=== PATIENT | male | born 1945 | race Caucasian/White ===

== ENCOUNTER 2017-08-12 15:43 | Inpatient (IN) | payer OTHER, MEDICARE ==
[~2017-08-12] VITALS: Ht 180.3 cm; Wt 99.3 kg
[2017-08-12 16:09] VITALS: BP 190/82; PULSE 88; RESP 17; TEMP 98.6; O2SAT 98
[2017-08-12] MEDS ORDERED: VANCOMYCIN INJ 1,000 MG in SODIUM CHLOR 0.9% 250 ML INJ 250 ML IV ONE (17:00)
[2017-08-12] MEDS ORDERED: PIPERACIL-TAZO 3.375 GM PREMIX 50 ML IV ONE (17:00)
[2017-08-12 17:17] VITALS: BP 142/70; PULSE 85; RESP 17; O2SAT 96
[2017-08-12 17:26] LABS: AUTOMATED NEUTROPHIL # 5.9 TH/MM3 (1.8-7.7); BASOPHIL # 0.1 TH/MM3 (0-0.2); BASOPHIL % 0.7 % (0.0-2.0); EOSINOPHIL # 0.5 TH/MM3 (0-0.4); EOSINOPHIL % 5.3 % (0.0-4.0); HEMATOCRIT 33.8 % (39.0-51.0); HEMOGLOBIN 11.7 GM/DL (13.0-17.0); LYMPHOCYTE # 1.8 TH/MM3 (1.0-4.8); MEAN CELL VOLUME 90.8 FL (80.0-100.0); MEAN CORPUSCULAR HEMOGLOBIN 31.6 PG (27.0-34.0); MEAN CORPUSCULAR HGB CONC 34.8 % (32.0-36.0); MEAN PLATELET VOLUME 10.6 FL (7.0-11.0); MONO % 7.7 % (0.0-8.0); MONOCYTE # 0.7 TH/MM3 (0-0.9); NEUT % 66.3 % (16.0-70.0); PLATELET COUNT 111 TH/MM3 (150-450); RED BLOOD COUNT 3.72 MIL/MM3 (4.50-5.90); RED CELL DISTRIBUTION WIDTH 14.2 % (11.6-17.2); WHITE BLOOD COUNT 8.9 TH/MM3 (4.0-11.0)
[2017-08-12] MEDS ORDERED: FISH100020 PO (17:34)
[2017-08-12] MEDS ORDERED: NOVOLOGMXP SQ ×2 (17:34)
[2017-08-12] MEDS ORDERED: MULTTAB67 PO (17:34)
[2017-08-12] MEDS ORDERED: TERA1CAP3 PO (17:34)
[2017-08-12] MEDS ORDERED: DOXE75CA2 PO (17:34)
[2017-08-12] MEDS ORDERED: GLUC500T4 PO (17:34)
[2017-08-12] MEDS ORDERED: ASCO500T PO (17:34)
[2017-08-12] MEDS ORDERED: UBID30CA2 PO (17:34)
[2017-08-12] MEDS ORDERED: LISI40TA PO (17:34)
[2017-08-12] MEDS ORDERED: ASPI-516 CHEW (17:34)
[2017-08-12] MEDS ORDERED: RED1CAP4 PO (17:34)
[2017-08-12] MEDS ORDERED: AMLO2.5T PO (17:34)
[2017-08-12] MEDS ORDERED: GEMF600T PO (17:34)
--- NOTE | 2017-08-12 17:40 | RADRPT ---
EXAM DATE/TIME: 08/12/2017 17:11 [place] COMPARISON: No previous studies available for comparison. INDICATIONS : Left foot pain and swelling with infection after walking in shoes for a long amount of time. MEDICAL HISTORY : Diabetes mellitus type II. SURGICAL HISTORY : None. ENCOUNTER: Initial ACUITY: 1 week PAIN SCORE: 6/10 LOCATION: Left foot. FINDINGS: There is deformity of the proximal phalanx of the 5th digit with prominent periosteal reaction and co rtical discontinuity suggesting a healed fracture. The remainder of the osseous structures of the fo refoot are intact. There is severe dorsal soft tissue swelling about the forefoot measuring up to 3 cm in thickness. There is some irregularity of the dorsal margin of the distal tarsal row and degene rative changes in the navicular tarsal articulation dorsally. There is loss of the midfoot arch. Th ere is a large plantar calcaneal spur. CONCLUSION: 1. Severe dorsal forefoot soft tissue swelling. 2. Old healed fracture of the proximal phalanx of the 5th digit. 3. Moderate irregularity of the osseous cortex dorsal aspect of the tarsal row, nonspecific for infec tion versus arthropathy. 4. Pes planus. Estiven Beaver MD on August 12, 2017 at 17:35 Board Certified Radiologist. This report was verified electronically.
[2017-08-12 17:41] LABS: ALBUMIN 3.8 GM/DL (3.4-5.0); AST (GOT) 17 U/L (15-37); BICARBONATE 20.6 MEQ/L (21.0-32.0); BLOOD UREA NITROGEN 44 MG/DL (7-18); CALCIUM 9.2 MG/DL (8.5-10.1); CHLORIDE 108 MEQ/L (98-107); CREATININE 2.49 MG/DL (0.60-1.30); GLOMERULAR FILTRATION RATE 26 ML/MIN (>89); GLUCOSE,RANDOM 155 MG/DL (74-106); SODIUM (NA) 139 MEQ/L (136-145)
[2017-08-12 17:45] LABS: ALKALINE PHOSPHATASE 117 U/L (45-117); ALT (GPT) 21 U/L (12-78); TOTAL BILIRUBIN ADULT 0.4 MG/DL (0.2-1.0)
--- NOTE | 2017-08-12 18:37 | PD ---
HPI Chief Complaint: Wound/Suture/Staple Re-Check Time Seen by Provider: 16:40 Travel History International Travel<30 days: No Contact w/Intl Traveler<30days: No Traveled to known affect area: No History of Present Illness HPI 71-year-old male that presents to the ED for evaluation of possible infection to his left foot. Patient states that he has had this swelling and infection of his left foot for about 2 weeks. Has a history of diabetes and takes insulin. Per patient his pain is 2 out of 10 is more like an ache. Per patient he has some sensation deficits because of the diabetes. Per patient he was seen by the [facility] doctor today who told him to come here for likely IV antibiotics and admission. Denies any trauma. Per patient he got concerned today because the nail of the left great toe fell off. He denies any surgeries to his feet but does get his nails taken care of by the [facility]. He states being compliant with his medications for diabetes. He denies any fevers chills or sweats. No urinary or bowel movement issues. Denies any chest pain or shortness of breath. No fevers chills or sweats. No injury or trauma to the foot that he can remember. He currently states that he cannot even wear shoes because of the swelling. PFSH Past Medical History Hx Anticoagulant Therapy: Yes Diabetes: Yes Patient Takes Glucophage: Yes Diminished Hearing: Yes Hypertension: Yes Medical other: Yes (BPH,GLAUCOMA,CKD,NEUROPATHY) Tetanus Vaccination: < 5 Years ?: Not Past Surgical History Other Surgery: Yes (LEFT HAND TRAUMA, LEFT EYE ) Social History Alcohol Use: No Tobacco Use: No Substance Use: No Allergies-Medications (Allergen,Severity, Reaction): Coded Allergies: No Known Allergies (Verified Allergy, Mild, 08/12/17) Reported Meds & Prescriptions Reported Meds & Active Scripts Active Reported Terazosin (Terazosin HCl) 1 Mg Cap 1 Mg PO HS Red Yeast Rice (Red Yeast Rice Extract) 600 Mg Cap 1,200 Mg PO BID Multiple Vitamin 1 Tab 1 Tab PO DAILY Lisinopril 40 Mg Tab 40 Mg PO BID Glucosamine-Chondroitin 500-400 Mg Tab 1 Tab PO DAILY Gemfibrozil 600 Mg Tab 600 Mg PO BIDAC Take 30 minutes prior to breakfast and dinner. Fish Oil 1000 mg ([place]-3 Fatty Acids) 300 Mg-1,000 Mg Cap 1,000 PO BID Doxepin (Doxepin HCl) 75 Mg Cap 75 Mg PO DAILY Coenzyme Q-10 (Ubidecarenone) 30 Mg Capsule PO DAILY Aspirin 81 Mg Chew 81 Mg CHEW DAILY Ascorbic Acid 500 Mg Tab 500 Mg PO DAILY Amlodipine (Amlodipine Besylate) 2.5 Mg Tab 2.5 Mg PO DAILY Novolog Mix 70-30 Inj (Insulin Aspart Prota 70%/Aspart 30%) 1,000 Unit/10 Ml Vial 32 Units SQ DAILY@1600 Novolog Mix 70-30 Inj (Insulin Aspart Prota 70%/Aspart 30%) 1,000 Unit/10 Ml Vial 30 Units SQ DAILYAC Review of Systems Except as stated in HPI: all other systems reviewed are Neg Physical Exam Narrative GENERAL: SKIN: Warm and dry. HEAD: Atraumatic. Normocephalic. EYES: Pupils equal and round. No scleral icterus. No injection or drainage. ENT: No nasal bleeding or discharge. Mucous membranes pink and moist. Tongue is midline. No uvula deviation. NECK: Trachea midline. No JVD. CARDIOVASCULAR: Regular rate and rhythm. No murmurs, S3, S4. RESPIRATORY: No accessory muscle use. Clear to auscultation. Breath sounds equal bilaterally. GASTROINTESTINAL: Abdomen soft, non-tender, nondistended. Hepatic and splenic margins not palpable. MUSCULOSKELETAL: Extremities without clubbing, cyanosis, or edema. No obvious deformities. Full range of motion of the upper and lower extremities bilaterally. 2+ pulses bilaterally. Patient does have swelling and erythema noted on the dorsal aspect of the left foot. Most of the swelling and erythematous on the first and second toe going to the distal third aspect of the foot. Mostly the dorsal aspect. Patient does have the big toe nail missing with some purulence coming out of it. Patient does appear to have good capillary refill. 2+ pitting edema. Erythematous and warm to touch. NEUROLOGICAL: Awake and alert. No obvious cranial nerve deficits. Motor grossly within normal limits. Five out of 5 muscle strength in the arms and legs. Normal speech. PSYCHIATRIC: Appropriate mood and affect; insight and judgment normal. Data Data Last Documented VS Vital Signs Date Time Temp Pulse Resp B/P (MAP) Pulse Ox O2 Delivery O2 Flow Rate FiO2 08/12/17 17:17 85 17 142/70 (94) 96 Room Air 08/12/17 16:09 98.6 Orders Orders Complete Blood Count With Diff (08/12/17 16:12) Comprehensive Metabolic Panel (08/12/17 16:12) Lactic Acid Sepsis Protocol (08/12/17 16:12) Blood Culture (08/12/17 16:12) Foot, Complete ([id number]) (08/12/17 16:55) Blood Culture (08/12/17 16:55) C-Reactive Protein (Crp) (08/12/17 16:55) Westergren Sedimentation Rate (08/12/17 16:55) Iv Access Insert/Monitor (08/12/17 16:55) Piperacil-Tazo 3.375 Gm Premix (Zosyn 3. (08/12/17 17:00) Vancomycin Inj (Vancomycin Inj) (08/12/17 17:00) Wound Culture And Gram Stain (08/12/17 16:55) Labs Laboratory Tests Test 08/12/17 16:37 08/12/17 17:06 White Blood Count 8.9 TH/MM3 Red Blood Count 3.72 MIL/MM3 Hemoglobin 11.7 GM/DL Hematocrit 33.8 % Mean Corpuscular Volume 90.8 FL Mean Corpuscular Hemoglobin 31.6 PG Mean Corpuscular Hemoglobin Concent 34.8 % Red Cell Distribution Width 14.2 % Platelet Count 111 TH/MM3 Mean Platelet Volume 10.6 FL Neutrophils (%) (Auto) 66.3 % Lymphocytes (%) (Auto) 20.0 % Monocytes (%) (Auto) 7.7 % Eosinophils (%) (Auto) 5.3 % Basophils (%) (Auto) 0.7 % Neutrophils # (Auto) 5.9 TH/MM3 Lymphocytes # (Auto) 1.8 TH/MM3 Monocytes # (Auto) 0.7 TH/MM3 Eosinophils # (Auto) 0.5 TH/MM3 Basophils # (Auto) 0.1 TH/MM3 CBC Comment DIFF FINAL Differential Comment Blood Urea Nitrogen 44 MG/DL Creatinine 2.49 MG/DL Random Glucose 155 MG/DL Total Protein 8.0 GM/DL Albumin 3.8 GM/DL Calcium Level 9.2 MG/DL Alkaline Phosphatase 117 U/L Aspartate Amino Transf (AST/SGOT) 17 U/L Alanine Aminotransferase (ALT/SGPT) 21 U/L Total Bilirubin 0.4 MG/DL Sodium Level 139 MEQ/L Potassium Level 4.3 MEQ/L Chloride Level 108 MEQ/L Carbon Dioxide Level 20.6 MEQ/L Anion Gap 10 MEQ/L Estimat Glomerular Filtration Rate 26 ML/MIN Lactic Acid Level 1.6 mmol/L Erythrocyte Sedimentation Rate 61 mm/hr C-Reactive Protein 0.35 MG/DL [facility] Medical Decision Making Medical Screen Exam Complete: Yes Emergency Medical Condition: Yes Medical Record Reviewed: Yes Interpretation(s) CBC & BMP Diagram 08/12/17 16:37 Total Protein 8.0, Albumin 3.8, Calcium Level 9.2, Alkaline Phosphatase 117, Aspartate Amino Transf (AST/SGOT) 17, Alanine Aminotransferase (ALT/SGPT) 21, Total Bilirubin 0.4 Last Impressions Foot X-Ray 08/12/17 9895 Signed Impressions: Service Date/Time: Saturday, August 12, 2017 17:11 - CONCLUSION: 1. Severe dorsal forefoot soft tissue swelling. 2. Old healed fracture of the proximal phalanx of the 5th digit. 3. Moderate irregularity of the osseous cortex dorsal aspect of the tarsal row, nonspecific for infection versus arthropathy. 4. Pes planus. Estiven Beaver MD CRP and ESR positive Differential Diagnosis Cellulitis versus osteomyelitis versus foot infection versus sepsis Narrative Course 71-year-old male that presents to the ED for evaluation of foot infection. Patient was properly examined and was found to have signs and symptoms consistent with appears to be left foot cellulitis deafly concerning for possible osteomyelitis. Labs and imaging were ordered. Labs and imaging did show signs of infection but no sign of osteo-myelitis at this time will definitely concerning as patient does have significant infection in his foot. Because patient is a diabetic in the significant area of erythema and swelling that he has to do recommend admission for IV antibiotics as well as possible podiatry evaluation. Patient agrees with this plan. This was discussed with my attending Dr. Jimenez who was made aware of findings and agrees with admission. JUSTIN was paged and Dr Bishop agreed with admission. Diagnosis Primary Impression: Cellulitis of foot, left Admitting Information Admitting Physician Requests: Observation El Fritz Aug 12, 2017 18:37
[2017-08-12] MEDS ORDERED: MAGNESIUM HYDROXIDE SUSP 30 ML CUP PO PRN (20:30)
[2017-08-12] MEDS ORDERED: LACTULOSE SYRUP 20 GM/30 ML CUP PO PRN (20:30)
[2017-08-12] MEDS ORDERED: SENNOSIDES 8.6 MG TAB PO PRN (20:30)
[2017-08-12] MEDS ORDERED: DEXTROSE 50% IN WATER 50 ML VIAL(D50) IV PUSH PRN (20:30)
[2017-08-12] MEDS ORDERED: Vancomycin Consult Pharmacy 1 EA OTHER SCH (20:30)
[2017-08-12] MEDS ORDERED: NALOXONE HCL 0.4 MG/ML AMP IV PUSH PRN (20:30)
[2017-08-12] MEDS ORDERED: BISACODYL 10 MG SUPP RECTAL PRN (20:30)
[2017-08-12] MEDS ORDERED: ONDANSETRON HCL 4 MG/2 ML VIAL IVP PRN (20:30)
[2017-08-12] MEDS ORDERED: ACETAMINOPHEN 325 MG TAB PO PRN (20:30)
[2017-08-12] MEDS ORDERED: GLUCAGON 1 MG/ML VIAL OTHER PRN (20:30)
--- NOTE | 2017-08-12 20:37 | HHI.HP ---
[facility] Admission Diagnosis left foot cellulitis Diagnoses: Travel History International Travel<30 Days: No Contact w/Intl Traveler <30 Da: No Traveled to Known Affected Are: No History of Present Illness 71-year-old male with a past medical history significant for diabetes mellitus, chronic kidney disease, cirrhosis, hypertension and hyperlipidemia presents to the emergency department for evaluation of his left foot pain/swelling. The patient states that approximately 2 weeks ago he had to walk 2 miles in all shoes and his foot began to swell. He denies any open wounds on the foot. He states that his foot became progressively more red and swollen and last night he lost the nail off his big toe. The patient reports he is able to ambulate on the foot and that it just has a dull ache all the time. His foot is red and swollen on the medial aspect and dorsum of the foot. He was seen by his primary care physician at the [facility] today who sent him to the emergency department for further evaluation. The patient denies any chest pain or shortness of breath. No abdominal pain. No nausea/vomiting/diarrhea. No lateralizing signs /symptoms. Review of Systems Except as stated in HPI: all other systems reviewed are Neg Past Family Social History Past Medical History Diabetes mellitus Chronic kidney disease Cirrhosis Hypertension Hyperlipidemia Past Surgical History Left fifth digit of the hand partially amputated Left eye cataract Reported Medications Reported Meds & Active Scripts Active Reported Terazosin (Terazosin HCl) 1 Mg Cap 1 Mg PO HS Red Yeast Rice (Red Yeast Rice Extract) 600 Mg Cap 1,200 Mg PO BID Multiple Vitamin 1 Tab 1 Tab PO DAILY Lisinopril 40 Mg Tab 40 Mg PO BID Glucosamine-Chondroitin 500-400 Mg Tab 1 Tab PO DAILY Gemfibrozil 600 Mg Tab 600 Mg PO BIDAC Take 30 minutes prior to breakfast and dinner. Fish Oil 1000 mg ([place]-3 Fatty Acids) 300 Mg-1,000 Mg Cap 1,000 PO BID Doxepin (Doxepin HCl) 75 Mg Cap 75 Mg PO DAILY Coenzyme Q-10 (Ubidecarenone) 30 Mg Capsule PO DAILY Aspirin 81 Mg Chew 81 Mg CHEW DAILY Ascorbic Acid 500 Mg Tab 500 Mg PO DAILY Amlodipine (Amlodipine Besylate) 2.5 Mg Tab 2.5 Mg PO DAILY Novolog Mix 70-30 Inj (Insulin Aspart Prota 70%/Aspart 30%) 1,000 Unit/10 Ml Vial 32 Units SQ DAILY@1600 Novolog Mix 70-30 Inj (Insulin Aspart Prota 70%/Aspart 30%) 1,000 Unit/10 Ml Vial 30 Units SQ DAILYAC Allergies: Coded Allergies: No Known Allergies (Verified Allergy, Mild, 08/12/17) Family History Both parents with history of CVA Social History Negative for alcohol, tobacco and illicit drugs Physical Exam Vital Signs Vital Signs Date Time Temp Pulse Resp B/P (MAP) Pulse Ox O2 Delivery O2 Flow Rate FiO2 08/12/17 17:17 85 17 142/70 (94) 96 Room Air 08/12/17 16:09 98.6 88 17 190/82 (118) 98 Physical Exam GENERAL: male sitting up in chair SKIN: Left foot edematous with erythema on the medial half of the dorsum of the foot that extends to the plantar surface. Right toenail missing. No obvious signs of drainage. No fluctuance. HEAD: Atraumatic. Normocephalic. No temporal or scalp tenderness. EYES: Pupils equal round and reactive. Extraocular motions intact. No scleral icterus. No injection or drainage. ENT: Nose without bleeding, purulent drainage or septal hematoma. Throat without erythema, tonsillar hypertrophy or exudate. Uvula midline. Airway patent. NECK: Trachea midline. No JVD or lymphadenopathy. Supple, nontender, no meningeal signs. CARDIOVASCULAR: Regular rate and rhythm without murmurs, gallops, or rubs. RESPIRATORY: Clear to auscultation. Breath sounds equal bilaterally. No wheezes , rales, or rhonchi. GASTROINTESTINAL: Abdomen soft, non-tender, nondistended. No hepato-splenomegaly , or palpable masses. No guarding. MUSCULOSKELETAL: Extremities without clubbing, cyanosis, or edema. No joint tenderness, effusion, or edema noted. No calf tenderness. NEUROLOGICAL: Awake and alert. Cranial nerves II through XII intact. Motor and sensory grossly within normal limits. Normal speech. Laboratory Laboratory Tests Test 08/12/17 16:37 08/12/17 17:06 White Blood Count 8.9 Red Blood Count 3.72 Hemoglobin 11.7 Hematocrit 33.8 Mean Corpuscular Volume 90.8 Mean Corpuscular Hemoglobin 31.6 Mean Corpuscular Hemoglobin Concent 34.8 Red Cell Distribution Width 14.2 Platelet Count 111 Mean Platelet Volume 10.6 Neutrophils (%) (Auto) 66.3 Lymphocytes (%) (Auto) 20.0 Monocytes (%) (Auto) 7.7 Eosinophils (%) (Auto) 5.3 Basophils (%) (Auto) 0.7 Neutrophils # (Auto) 5.9 Lymphocytes # (Auto) 1.8 Monocytes # (Auto) 0.7 Eosinophils # (Auto) 0.5 Basophils # (Auto) 0.1 CBC Comment DIFF FINAL Differential Comment Blood Urea Nitrogen 44 Creatinine 2.49 Random Glucose 155 Total Protein 8.0 Albumin 3.8 Calcium Level 9.2 Alkaline Phosphatase 117 Aspartate Amino Transf (AST/SGOT) 17 Alanine Aminotransferase (ALT/SGPT) 21 Total Bilirubin 0.4 Sodium Level 139 Potassium Level 4.3 Chloride Level 108 Carbon Dioxide Level 20.6 Anion Gap 10 Estimat Glomerular Filtration Rate 26 Lactic Acid Level 1.6 Erythrocyte Sedimentation Rate 61 C-Reactive Protein 0.35 Date/Time Source Procedure Growth Status 08/12/17 17:10 Blood Peripheral Aerobic Blood Culture Pending Received 08/12/17 17:10 Blood Peripheral Anaerobic Blood Culture Pending Received 08/12/17 17:06 Wound Foot Gram Stain Pending Received 08/12/17 17:06 Wound Foot Wound Culture Pending Received Result Diagram: 08/12/17 1637 08/12/17 1637 Caprini VTE Risk Assessment Caprini VTE Risk Assessment: Mod/High Risk (score >= 2) Caprini Risk Assessment Model Point Value = 1 Point Value = 2 Point Value = 3 Point Value = 5 Age 41-60 Minor surgery BMI > 25 kg/m2 Swollen legs Varicose veins or History of unexplained or recurrent spontaneous Oral contraceptives or hormone replacement Sepsis (< 1 month) Serious lung disease, including pneumonia (< 1 month) Abnormal pulmonary function Acute myocardial infarction Congestive heart failure (< 1 month) History of inflammatory bowel disease Medical patient at bed rest Age 61-74 Arthroscopic surgery Major open surgery (> 45 min) Laparoscopic surgery (> 45 min) Malignancy Confined to bed (> 72 hours) Immobilizing plaster cast Central venous access Age >= 75 History of VTE Family history of VTE Factor V Leiden Prothrombin [id number] Lupus anticoagulant Anticardiolipin antibodies Elevated serum homocysteine Heparin-induced thrombocytopenia Other congenital or acquired thrombophilia Stroke (< 1 month) Elective arthroplasty Hip, pelvis, or leg fracture Acute spinal cord injury (< 1 month) Prophylaxis Regimen Total Risk Factor Score Risk Level Prophylaxis Regimen 0-1 Low Early ambulation 2 Moderate Order ONE of the following: *Sequential Compression Device (SCD) *Heparin 5000 units SQ BID 3-4 Higher Order ONE of the following medications: *Heparin 5000 units SQ TID *Enoxaparin/Lovenox 40 mg SQ daily (WT < 150 kg, CrCl > 30 mL/min) *Enoxaparin/Lovenox 30 mg SQ daily (WT < 150 kg, CrCl > 10-29 mL/min) *Enoxaparin/Lovenox 30 mg SQ BID (WT < 150 kg, CrCl > 30 mL/min) AND/OR *Sequential Compression Device (SCD) 5 or more Highest Order ONE of the following medications: *Heparin 5000 units SQ TID (Preferred with Epidurals) *Enoxaparin/Lovenox 40 mg SQ daily (WT < 150 kg, CrCl > 30 mL/min) *Enoxaparin/Lovenox 30 mg SQ daily (WT < 150 kg, CrCl > 10-29 mL/min) *Enoxaparin/Lovenox 30 mg SQ BID (WT < 150 kg, CrCl > 30 mL/min) AND *Sequential Compression Device (SCD) Assessment and Plan Assessment and Plan Assessment/plan: 1. Left foot cellulitis Cannot rule out osteomyelitis Elevated ESR/CRP Foot x-ray significant for severe dorsal forefoot soft tissue swelling with an irregular osseous cortex of the dorsal aspect of the tarsal row nonspecific for infection versus arthropathy Podiatry consulted, appreciate recommendations Vancomycin/Zosyn 2. Diabetes mellitus Holding home NovoLog as patient nothing by mouth Sliding scale insulin Monitor blood glucose 3. Chronic kidney disease BUN/creatinine 44/2.49, baseline unknown Monitor renal function 4. Cirrhosis/hypertension/hyperlipidemia Continue home medications FEN NPO Electrolytes: monitor and replete prn NS at 100 cc/hr Holding pharmacologic anticoagulation for possible procedure Theresa Bishop MD Aug 12, 2017 20:37
[2017-08-12] MEDS: DOCUSATE SODIUM 50 MG/SENNA 8.6 MG TAB PO SCH (21:00)
[2017-08-12] MEDS ORDERED: NON-FORMULARY DRUG (Lisinopril 40 MG) PO SCH (21:00)
[2017-08-12 21:15] VITALS: BP 206/93; PULSE 76; RESP 16; TEMP 98.5; O2SAT 98
[2017-08-12] MEDS: SODIUM CHLOR 0.9% 1000 ML INJ 1,000 ML IV SCH (23:03)
[2017-08-12] MEDS: SODIUM CHLORIDE 0.9% FLUSH 10 ML FLUSH IV FLUSH SCH (23:05)
[2017-08-12] MEDS: PIPERACIL-TAZO 3.375 GM PREMIX 50 ML IV SCH (23:05)
[2017-08-12] MEDS: INSULIN ASPART SUPPLEMENTAL SCALE SQ SCH (23:05)
[2017-08-12] MEDS: TERAZOSIN HCL 1 MG CAP PO SCH (23:06)
[2017-08-13] VITALS (10 sets, daily range): BP systolic 131–237; BP diastolic 71–105; PULSE 66–102; RESP 16–20; TEMP 96.3–98.2; O2SAT 93–97
[2017-08-13] MEDS: PIPERACIL-TAZO 3.375 GM PREMIX 50 ML IV SCH ×4 (04:54→23:19)
[2017-08-13] MEDS ORDERED: VANCOMYCIN INJ 1,000 MG in SODIUM CHLOR 0.9% 250 ML INJ 250 ML IV SCH (05:00)
[2017-08-13 07:17] LABS: BASOPHIL # 0.1 TH/MM3 (0-0.2); EOSINOPHIL # 0.4 TH/MM3 (0-0.4); EOSINOPHIL % 5.7 % (0.0-4.0); HEMATOCRIT 29.9 % (39.0-51.0); HEMOGLOBIN 10.7 GM/DL (13.0-17.0); LYMPHOCYTE # 1.4 TH/MM3 (1.0-4.8); MEAN CELL VOLUME 89.7 FL (80.0-100.0); MEAN CORPUSCULAR HEMOGLOBIN 32.1 PG (27.0-34.0); MEAN CORPUSCULAR HGB CONC 35.8 % (32.0-36.0); MEAN PLATELET VOLUME 10.1 FL (7.0-11.0); MONOCYTE # 0.6 TH/MM3 (0-0.9); NEUT % 66.3 % (16.0-70.0); PLATELET COUNT 97 TH/MM3 (150-450); RED BLOOD COUNT 3.34 MIL/MM3 (4.50-5.90); WHITE BLOOD COUNT 7.5 TH/MM3 (4.0-11.0)
[2017-08-13 07:40] LABS: BICARBONATE 18.4 MEQ/L (21.0-32.0); CALCIUM 8.8 MG/DL (8.5-10.1); CREATININE 2.29 MG/DL (0.60-1.30)
[2017-08-13] MEDS: INSULIN ASPART SUPPLEMENTAL SCALE SQ SCH ×4 (08:16→21:00)
[2017-08-13 08:20] LABS: OVALOCYTES 1+ (NORMAL)
[2017-08-13] MEDS ORDERED: LISINOPRIL 20 MG TAB PO SCH (09:00)
[2017-08-13] MEDS ORDERED: amLODIPine BESYLATE 5 MG TAB PO SCH (09:00)
[2017-08-13] MEDS: DOXEPIN HCL 25 MG CAP PO SCH (09:01)
[2017-08-13] MEDS: SODIUM CHLORIDE 0.9% FLUSH 10 ML FLUSH IV FLUSH SCH ×2 (09:01→21:00)
[2017-08-13] MEDS: SODIUM CHLOR 0.9% 1000 ML INJ 1,000 ML IV SCH ×2 (09:01→21:48)
[2017-08-13] MEDS: DOCUSATE SODIUM 50 MG/SENNA 8.6 MG TAB PO SCH ×2 (09:02→21:00)
--- NOTE | 2017-08-13 09:17 | HHI.PR ---
Subjective Remarks Followed for diabetes with left foot cellulitis. The patient reports continued left foot erythema, edema, and pain. He states a few weeks ago his car broke down, and he had to wear some ill fitting shoes and walk a couple miles. States his shoes rubbed a few sores on to his left foot and toes. He states since this time, his left foot continued to swell and become more red. Denies any injury or swelling to the right foot. He denies fevers or chills. He does not check his blood sugars at home because he states his hemoglobin A1c's are usually around 7 and BG fairly well controlled. He takes Novolog 70/30 pen 31 units before breakfast and 32 units before dinner. He denies any other medical complaints including no headache, lightheadedness, dizziness, chest pain, shortness of breath, or abdominal complaints. Objective Vitals Vital Signs Date Time Temp Pulse Resp B/P (MAP) Pulse Ox O2 Delivery O2 Flow Rate FiO2 08/13/17 07:58 98.1 82 20 131/94 (106) 95 08/13/17 05:52 86 16 199/83 (121) 96 08/13/17 04:57 97.6 88 16 237/99 (145) 97 08/13/17 01:19 97.5 102 16 95 08/12/17 21:15 98.5 76 16 206/93 (130) 98 08/12/17 20:52 08/12/17 17:17 85 17 142/70 (94) 96 Room Air 08/12/17 16:09 98.6 88 17 190/82 (118) 98 I/O 08/12/17 08/12/17 08/12/17 08/13/17 08/13/17 08/13/17 07:00 15:00 23:00 07:00 15:00 23:00 Intake Total 50 ml 1200 ml Balance 50 ml 1200 ml Intake Oral 1200 ml IV Total 50 ml # Voids 6 Result Diagram: 08/13/17 0650 08/13/17 0650 Imaging Last Impressions Foot X-Ray 08/12/17 5313 Signed Impressions: Service Date/Time: Saturday, August 12, 2017 17:11 - CONCLUSION: 1. Severe dorsal forefoot soft tissue swelling. 2. Old healed fracture of the proximal phalanx of the 5th digit. 3. Moderate irregularity of the osseous cortex dorsal aspect of the tarsal row, nonspecific for infection versus arthropathy. 4. Pes planus. Estiven Beaver MD Objective Remarks GENERAL: Well-nourished, well-developed pleasant elderly male patient in NAD. SKIN: Warm and dry. No rash. HEENT: Normocephalic. Atraumatic.Pupils equal and round. Mucous membranes pink and moist. NECK: Supple. Trachea midline. CARDIOVASCULAR: Regular rate and rhythm. No murmur appreciated. RESPIRATORY: No accessory muscle use. Clear to auscultation. Breath sounds equal bilaterally. GASTROINTESTINAL: Abdomen soft, non-tender, nondistended. Normoactive bowel sounds x4. MUSCULOSKELETAL: No obvious deformities. Left foot with big toe nail removed, nail bed with dried blood, multiple small abrasions on toes; surrounding erythema/edema throughout all left foot toes that extends into the mid foot. Right foot without any erythema/edema or wounds. NEUROLOGICAL: Awake and alert. No obvious cranial nerve deficits. Motor grossly within normal limits. Normal speech. PSYCHIATRIC: Appropriate mood and affect; insight and judgment normal. Medications and IVs Current Medications Medications (Trade) Dose Ordered Sig/Juan Route Start Time Stop Time Status Last Admin Sodium Chloride 1,000 ml @ 100 mls/hr Q10H IV 08/12/17 21:00 08/13/17 09:01 (NS Flush) 2 ml UNSCH PRN IV FLUSH 08/12/17 20:30 (NS Flush) 2 ml BID IV FLUSH 08/12/17 21:00 08/13/17 09:01 (Tylenol) 650 mg Q4H PRN PO 08/12/17 20:30 (Zofran Inj) 4 mg Q6H PRN IVP 08/12/17 20:30 (Narcan Inj) 0.4 mg UNSCH PRN IV PUSH 08/12/17 20:30 (Josefa-Colace) 1 tab BID PO 08/12/17 21:00 (Milk Of Magnesia Liq) 30 ml Q12H PRN PO 08/12/17 20:30 (Senokot) 17.2 mg Q12H PRN PO 08/12/17 20:30 (Dulcolax Supp) 10 mg DAILY PRN RECTAL 08/12/17 20:30 (Lactulose Liq) 30 ml DAILY PRN PO 08/12/17 20:30 (D50w (Vial) Inj) 50 ml UNSCH PRN IV PUSH 08/12/17 20:30 (Glucagon Inj) 1 mg UNSCH PRN OTHER 08/12/17 20:30 (NovoLOG SUPPLEMENTAL SCALE) 1 ACHS SLIDING SCALE SQ 08/12/17 21:00 08/12/17 23:05 Pharmacy Profile Note 0 ml @ 0 mls/hr UNSCH OTHER 08/12/17 20:30 Piperacillin Sod/ Tazobactam Sod 50 ml @ 100 mls/hr Q6H IV 08/12/17 23:00 08/13/17 10:31 (Norvasc) 2.5 mg DAILY PO 08/13/17 09:00 08/13/17 09:02 (SINEquan) 75 mg DAILY PO 08/13/17 09:00 08/13/17 09:01 (Hytrin) 1 mg HS PO 08/12/17 21:00 08/12/17 23:06 (Prinivil) 40 mg DAILY PO 08/13/17 09:00 08/13/17 09:02 Vancomycin HCl 1250 mg/Sodium Chloride 262.5 ml @ 250 mls/hr Q24H IV 08/13/17 12:00 Miscellaneous Information SPECIFIC LAB TO BE DRAWN:[facility] DATE TO BE .. ONCE ONCE .XX 08/15/17 11:45 08/15/17 11:46 A/P Assessment and Plan 71-year-old male with history of type II DM, CKD, HTN, HLD, cirrhosis, presents with a two-week history of left foot erythema/edema. Left foot cellulitis with diabetes: -Left foot x-ray reviewed, shows severe dorsal forefoot soft tissue swelling ; old healed fracture of the proximal fifth phalanx; moderate irregularity of the osseous cortex dorsal aspect of the tarsal row, nonspecific for infection versus arthropathy -Checking left foot MRI, unable to have contrast secondary to kidney function -Continue on antibiotics with IV vancomycin/Zosyn, pharmacy consulted -Elevate LLE -Control blood sugars -Consult podiatry, appreciate recommendations Diabetes mellitus, type II: Blood glucose fairly well controlled -Continue patient's NovoLog 70/30, 31units before breakfast, and 32units before dinner -Monitor Accu-Cheks, cover with SSI -Diabetic diet SCOTT on CKD: Unknown baseline, suspect stage 3-4. Creatinine 2.49 and GFR 26 upon arrival. -Avoid nephrotoxins -Give IVF hydration -Hold patient's lisinopril, consider discontinuing at discharge -Monitor renal function Accelerated hypertension with hypertensive urgency: BP elevated to 237/99 this morning -Holding patient's lisinopril due to renal function as above -Change patient's amlodipine to Nifedipine XL 60mg daily -Hydralazine prn SBP > 180 -Monitor BP, adjust antihypertensives as needed Hyperlipidemia: chronic -continue patient's home meds DVT Prophylaxis: teds/SCDs to the right leg; unable to apply to the left due to cellulitis; avoid chemoprophylaxis for now incase surgery is indicated Discharge Planning Further work up in progress. Not yet ready for discharge. May need to be inpatient, discussed with case management. Nu Vance PA-C Aug 13, 2017 9:17 am
[2017-08-13] MEDS: VANCOMYCIN INJ 1,250 MG in SODIUM CHLOR 0.9% 250 ML INJ 250 ML IV SCH (13:33)
--- NOTE | 2017-08-13 13:35 | RADRPT ---
EXAM DATE/TIME: 08/13/2017 12:34 [facility] COMPARISON: FOOT LEFT COMPLETE ([id number]), August 12, 2017, 17:11. INDICATIONS : Cellulitis. Left big toe wound. MEDICAL HISTORY : Diabetes mellitus type 2. Hypertension. Renal failure, chronic. Glaucoma. SURGICAL HISTORY : Left hand, left eye, right ear, and left knee. ENCOUNTER: Initial ACUITY: 1 day PAIN SCORE: 0/10 LOCATION: Foot. TECHNIQUE: Multiplanar, multisequence MRI examination was performed without contrast. FINDINGS: There is prominent dorsal soft tissue swelling confined to the subcutaneous tissues. The soft tissue swelling is 1.8 cm in thickness it is characterized by heterogeneous prominent T2 prolongation and T 1 prolongation. There is preservation of some of the fatty septum through the soft tissues. No drai nable fluid collection seen. There is also some mild T2 prolongation in the deep soft tissues adjacent to the plantar arch. There is soft tissue thickening and T2 prolongation which surrounds the base of the 2nd metatarsal bone an d on the T2 weighted images, there is evidence of some T2 prolongation in the marrow of the proximal metaphysis and epiphysis. There is no T1 shortening however. No drainable fluid collections is seen plantar to the proximal 2nd metatarsal bone. There is a small effusion present dorsal to the 1st digit MTP joint. The extensor tendon of the 1st digit are intact. Conventional radiographs demonstrated a healed fracture of the proximal phalanx of the 5th digit. Th ere is normal signal characteristics within the marrow of the 5th digit proximal phalanx. CONCLUSION: 1. Prominent dorsal soft tissue swelling in the subcutaneous soft tissues without drainable fluid col lection, characteristic of cellulitis. 2. There is also inflammatory signal change in the soft tissue surrounding the proximal 2nd metatarsa l bone and there is some mild T2 prolongation within the marrow of the proximal metaphysis of the 2nd metatarsus, but no T1 prolongation. The findings are therefore equivocal regarding osteomyelitis of the proximal 2nd metatarsus. Estiven Beaver MD on August 13, 2017 at 13:19 Board Certified Radiologist. This report was verified electronically.
[2017-08-13] MEDS ORDERED: NIFEdipine 60 MG SUSTAINED RELEASE TAB PO ONE (17:15)
[2017-08-13] MEDS: GEMFIBROZIL 600 MG TAB PO SCH (18:00)
[2017-08-13] MEDS: INSULIN ASPAR PROT 70/30 1,000 UNITS/10 ML VIAL SQ SCH (18:46)
[2017-08-13] MEDS: hydrALAZINE HCL 25 MG TAB PO PRN (21:46)
[2017-08-13] MEDS: TERAZOSIN HCL 1 MG CAP PO SCH (21:46)
[2017-08-14] MEDS: SODIUM CHLOR 0.9% 1000 ML INJ 1,000 ML IV SCH ×2 (03:00→10:10)
[2017-08-14] MEDS: PIPERACIL-TAZO 3.375 GM PREMIX 50 ML IV SCH ×4 (04:01→23:13)
[2017-08-14 05:01] VITALS: BP 192/92; PULSE 74; RESP 20; TEMP 97.9; O2SAT 97
[2017-08-14 07:47] LABS: BASOPHIL # 0.1 TH/MM3 (0-0.2); BASOPHIL % 0.9 % (0.0-2.0); EOSINOPHIL # 0.5 TH/MM3 (0-0.4); EOSINOPHIL % 6.3 % (0.0-4.0); HEMOGLOBIN 10.9 GM/DL (13.0-17.0); LYMPH % 18.7 % (9.0-44.0); LYMPHOCYTE # 1.4 TH/MM3 (1.0-4.8); MEAN CELL VOLUME 90.3 FL (80.0-100.0); MEAN CORPUSCULAR HEMOGLOBIN 31.9 PG (27.0-34.0); MEAN CORPUSCULAR HGB CONC 35.3 % (32.0-36.0); MEAN PLATELET VOLUME 10.5 FL (7.0-11.0); MONO % 7.3 % (0.0-8.0); MONOCYTE # 0.6 TH/MM3 (0-0.9); NEUT % 66.8 % (16.0-70.0); PLATELET COUNT 107 TH/MM3 (150-450); RED BLOOD COUNT 3.43 MIL/MM3 (4.50-5.90); RED CELL DISTRIBUTION WIDTH 14.1 % (11.6-17.2); WHITE BLOOD COUNT 7.5 TH/MM3 (4.0-11.0)
[2017-08-14] MEDS: INSULIN ASPART SUPPLEMENTAL SCALE SQ SCH ×3 (08:00→21:20)
[2017-08-14] MEDS ORDERED: INSULIN ASPAR PROT 70/30 1,000 UNITS/10 ML VIAL SQ SCH (08:00)
[2017-08-14 08:34] VITALS: BP_SYST 194; BP_SYST 210; BP_DIAS 86; PULSE 78; RESP 20; TEMP 96.8; O2SAT 98
[2017-08-14] MEDS: NIFEdipine 60 MG SUSTAINED RELEASE TAB PO SCH (08:35)
[2017-08-14] MEDS: DOXEPIN HCL 25 MG CAP PO SCH (08:36)
[2017-08-14] MEDS: GEMFIBROZIL 600 MG TAB PO SCH ×2 (08:36→17:33)
[2017-08-14] MEDS: DOCUSATE SODIUM 50 MG/SENNA 8.6 MG TAB PO SCH ×2 (08:37→21:00)
[2017-08-14] MEDS: SODIUM CHLORIDE 0.9% FLUSH 10 ML FLUSH IV FLUSH SCH ×2 (08:38→22:30)
--- NOTE | 2017-08-14 09:03 | MB ---
cc: Omar Melvin DPM DATE: 08/13/2017 REASON FOR CONSULTATION: Left foot possible infection. HISTORY OF PRESENT ILLNESS: This is a 71-year-old male whose car broke down and he had to walk a long distance approximately 2 weeks ago and his foot began to swell. He lost a toenail secondary to rubbing on the shoe and he had progressive warmth, redness and presented to the ED, [facility]. Currently, I am seeing the patient at bedside. He has improved since he has been in the hospital. PAST MEDICAL HISTORY: Positive for diabetes, kidney disease, cirrhosis, hypertension, hyperlipidemia. PAST SURGICAL HISTORY: Left fifth digit hand partial amputated, left cataract eye. OUTPATIENT MEDICATIONS REVIEW: No mention of antibiotics. INPATIENT MEDICATIONS: Reviewed. The patient is receiving vancomycin and Zosyn. Please see complete medication list in chart. ALLERGIES: NONE LISTED. PHYSICAL EXAMINATION: VITAL SIGNS: Temperature is 98.1, pulse rate 87, blood pressure 222/105. I spoke with nursing. Recheck will take place and the patient has medications ordered. We will address as needed. EXTREMITIES: Left lower extremity is examined. There is redness, edema. No obvious crepitus or instability. Absent left hallux nail with dried blood. There is no obvious puncture wound. There is no gas in the tissue. There is good range of motion of the hindfoot and ankle. Right lower extremity is without any obvious issue. Pulses are palpable of the left lower extremity. Decreased sensation to light touch, but intact to deep pressure. LABORATORY DATA: White blood cell 7.5, hemoglobin and hematocrit 10 and 29, platelet count is 97. ESR 61. Chem-7, sodium 141, potassium 4.2, chloride 111, CO2 18.4, BUN is 39, creatinine 2.29, random glucose is 115. C-reactive protein 0.35. Microbial findings, wound Gram negative rods, staph species. IMAGING FINDINGS: Foot x-ray impression, severe dorsal foot swelling. Old healed fracture of proximal phalanx fifth digit. Moderate irregularity of the osseous cortical structure of the tarsal row, nonspecific for infection versus arthropathy. Foot MRI, prominent dorsal swelling in the subcutaneous soft tissues, without drainable fluid collection, characteristic of cellulitis. There is also inflammatory signal change in the soft tissue surrounding the proximal second metatarsal bone and there is some mild T2 prolongation within the marrow of the proximal metaphysis of the 2nd metatarsals, but no T1. These findings are equivocal regarding osteomyelitis of the proximal second metatarsus. ASSESSMENT AND PLAN: Left foot infection, swelling, stress fracture versus osteomyelitis. I explained to the patient the results of our findings. In order to determine in fact if this is truly a bone infection, I am recommending bone biopsy. This will take place in the operating room tomorrow, schedule permitting. The patient is ordered n.p.o. after midnight. TICO Souza/CEDRIC , 07:33 PM , 07:49 PM
[2017-08-14 09:19] LABS: BICARBONATE 22.5 MEQ/L (21.0-32.0); CALCIUM 8.6 MG/DL (8.5-10.1); CREATININE 2.28 MG/DL (0.60-1.30)
--- NOTE | 2017-08-14 10:32 | HHI.PR ---
Subjective Remarks Follow-up on patient with diabetes, left foot cellulitis. Patient seen and examined. Patient states that the swelling and redness of the left foot has improved. Denies any complaints of pain, states left foot is mostly numb. Denies any fever or chills. Denies any chest pain or shortness of breath. Denies any chest pain or dyspnea. NPO for surgery today. Has not had a BM in several days but reports this is normal for him. He is refusing any meds to help with BM. Objective Vitals Vital Signs Date Time Temp Pulse Resp B/P (MAP) Pulse Ox O2 Delivery O2 Flow Rate FiO2 08/14/17 08:34 96.8 78 20 210/86 (127) 98 08/14/17 05:01 97.9 74 20 192/92 (125) 97 08/13/17 23:06 97.6 78 20 148/71 (96) 96 08/13/17 20:10 98.1 77 20 197/90 (125) 96 08/13/17 18:55 87 222/105 (144) 08/13/17 16:55 98.1 79 20 232/93 (139) 96 08/13/17 13:36 98.2 80 20 214/96 (135) 95 08/13/17 12:18 96.3 66 20 174/77 (109) 93 I/O 08/13/17 08/13/17 08/13/17 08/14/17 08/14/17 08/14/17 07:00 15:00 23:00 07:00 15:00 23:00 Intake Total 1200 ml Balance 1200 ml Intake Oral 1200 ml # Voids 6 4 Result Diagram: 08/14/17 0658 08/14/17 0658 Imaging Last Impressions Foot MRI 08/13/17 0000 Signed Impressions: Service Date/Time: August 12:34 - CONCLUSION: 1. Prominent dorsal soft tissue swelling in the subcutaneous soft tissues without drainable fluid collection, characteristic of cellulitis. 2. There is also inflammatory signal change in the soft tissue surrounding the proximal 2nd metatarsal bone and there is some mild T2 prolongation within the marrow of the proximal metaphysis of the 2nd metatarsus, but no T1 prolongation. The findings are therefore equivocal regarding osteomyelitis of the proximal 2nd metatarsus. Estiven Beaver MD Foot X-Ray 08/12/17 0933 Signed Impressions: Service Date/Time: Saturday, August 12, 2017 17:11 - CONCLUSION: 1. Severe dorsal forefoot soft tissue swelling. 2. Old healed fracture of the proximal phalanx of the 5th digit. 3. Moderate irregularity of the osseous cortex dorsal aspect of the tarsal row, nonspecific for infection versus arthropathy. 4. Pes planus. Estiven Beaver MD Objective Remarks GENERAL: Well-nourished, well-developed pleasant elderly male patient in NAD. Awake and alert. Sitting up in bedside chair. SKIN: Warm and dry. No rash. HEENT: Normocephalic. Atraumatic. EOMI. Mucous membranes pink and moist. NECK: Supple. Trachea midline. CARDIOVASCULAR: Regular rate and rhythm. No murmur appreciated. RESPIRATORY: Nonlabored. Clear to auscultation. Breath sounds equal bilaterally. GASTROINTESTINAL: Abdomen soft, non-tender, nondistended. Normoactive bowel sounds x4. MUSCULOSKELETAL: No obvious deformities. Left foot with big toe nail removed, nail bed with dried blood, multiple small abrasions on toes; surrounding erythema/edema throughout all left foot toes that extends into the mid foot. Right foot without any erythema/edema or wounds. NEUROLOGICAL: Awake and alert. No obvious cranial nerve deficits. Motor grossly within normal limits. Normal speech. PSYCHIATRIC: Appropriate mood and affect; insight and judgment normal. Medications and IVs Current Medications Medications (Trade) Dose Ordered Sig/Juan Route Start Time Stop Time Status Last Admin Sodium Chloride 1,000 ml @ 100 mls/hr Q10H IV 08/12/17 21:00 08/14/17 10:10 (NS Flush) 2 ml UNSCH PRN IV FLUSH 08/12/17 20:30 (NS Flush) 2 ml BID IV FLUSH 08/12/17 21:00 08/14/17 08:38 (Tylenol) 650 mg Q4H PRN PO 08/12/17 20:30 (Zofran Inj) 4 mg Q6H PRN IVP 08/12/17 20:30 (Narcan Inj) 0.4 mg UNSCH PRN IV PUSH 08/12/17 20:30 (Josefa-Colace) 1 tab BID PO 08/12/17 21:00 (Milk Of Magnesia Liq) 30 ml Q12H PRN PO 08/12/17 20:30 (Senokot) 17.2 mg Q12H PRN PO 08/12/17 20:30 (Dulcolax Supp) 10 mg DAILY PRN RECTAL 08/12/17 20:30 (Lactulose Liq) 30 ml DAILY PRN PO 08/12/17 20:30 (D50w (Vial) Inj) 50 ml UNSCH PRN IV PUSH 08/12/17 20:30 (Glucagon Inj) 1 mg UNSCH PRN OTHER 08/12/17 20:30 (NovoLOG SUPPLEMENTAL SCALE) 1 ACHS SLIDING SCALE SQ 08/12/17 21:00 08/12/17 23:05 Pharmacy Profile Note 0 ml @ 0 mls/hr UNSCH OTHER 08/12/17 20:30 Piperacillin Sod/ Tazobactam Sod 50 ml @ 100 mls/hr Q6H IV 08/12/17 23:00 08/14/17 04:01 (SINEquan) 75 mg DAILY PO 08/13/17 09:00 08/14/17 08:36 (Hytrin) 1 mg HS PO 08/12/17 21:00 08/13/17 21:46 Vancomycin HCl 1250 mg/Sodium Chloride 262.5 ml @ 250 mls/hr Q24H IV 08/13/17 12:00 08/13/17 13:33 Miscellaneous Information SPECIFIC LAB TO BE DRAWN:VANCO TROUGH DATE TO BE DRmJ.. ONCE ONCE .XX 08/15/17 11:45 08/15/17 11:46 (NovoLOG MIX 70/ 30 INJ) 30 units DAILYAC SQ 08/14/17 08:00 08/14/17 10:09 (NovoLOG MIX 70/ 30 INJ) 32 units DAILY@1600 SQ 08/13/17 16:00 08/13/17 18:46 (Lopid) 600 mg BIDAC PO 08/13/17 16:00 08/14/17 08:36 (Procardia Xl) 60 mg DAILY PO 08/14/17 09:00 08/14/17 08:35 (Apresoline) 25 mg Q6HR PRN PO 08/13/17 11:30 08/13/17 21:46 A/P Assessment and Plan 71-year-old male with history of type II DM, CKD, HTN, HLD, cirrhosis, presents with a two-week history of left foot erythema/edema. Left foot cellulitis with diabetes, concern for osteomyelitis: -Left foot x-ray reviewed, shows severe dorsal forefoot soft tissue swelling ; old healed fracture of the proximal fifth phalanx; moderate irregularity of the osseous cortex dorsal aspect of the tarsal row, nonspecific for infection versus arthropathy -MRI (without contrast 2/2 kidney fxn) reveals Prominent dorsal soft tissue swelling in the subcutaneous soft tissues without drainable fluid collection, characteristic of cellulitis, inflammatory signal change in the soft tissue surrounding the proximal 2nd metatarsal bone and there is some mild T2 prolongation within the marrow of the proximal metaphysis of the 2nd metatarsus , but no T1 prolongation. The findings are therefore equivocal regarding osteomyelitis of the proximal 2nd metatarsus. -Wound cx growing GNR and staph -Consult infectious disease, appreciate recommendations -Continue on antibiotics with IV vancomycin/Zosyn, pharmacy consulted -Elevate LLE -Control blood sugars -Podiatry following, appreciate assistance. Plan for surgical procedure later today -keep NPO. IVF. Diabetes mellitus, type II: Blood glucose fairly well controlled -Continue patient's NovoLog 70/30, 31units before breakfast, and 32units before dinner -blood sugar low as patient NPO for procedure. Given NovoLog this morning. Hold scheduled insulin for now. -Monitor Accu-Cheks, cover with SSI -Diabetic diet once able to eat SCOTT on CKD: Unknown baseline, suspect stage 3-4. Creatinine 2.49 and GFR 26 upon arrival. -Avoid nephrotoxins -Creatinine improved with IVF hydration -Hold patient's lisinopril, consider discontinuing at discharge -Monitor renal function Accelerated hypertension with hypertensive urgency: BP elevated to 237/99 -Holding patient's lisinopril due to renal function as above -Change patient's amlodipine to Nifedipine XL 60mg daily. Monitor. -Hydralazine prn SBP > 180 Hyperlipidemia: chronic -continue patient's home meds DVT Prophylaxis: teds/SCDs to the right leg; unable to apply to the left due to cellulitis; avoid chemoprophylaxis for surgical intervention Discharge Planning Pending improvement in clinical course, ID clearance and podiatry clearance Nickie Jean Aug 14, 2017 10:32
--- NOTE | 2017-08-14 11:57 | MB ---
cc: Ahsan Desouza MD DATE: 08/14/2017 REQUESTING PHYSICIAN: Dr. Dillon REASON FOR CONSULTATION: Possible osteomyelitis. Diabetic left foot cellulitis. HISTORY OF PRESENT ILLNESS: This is a 71-year-old white male who has diabetes mellitus. The patient developed redness and swelling of his left foot and the nail from the left great toe fell off approximately 4 days ago and he was sent to the emergency department by the [place] doctor who he was seeing for evaluation. The patient notes that he was walking quite a bit after his car broke down about 2 weeks ago and he was having foot drop against the shoe which was not a very good shoe for walking and subsequently he started developing the swelling of the left foot and subsequently redness. He denies fever, chills, nausea or vomiting. X-ray of the left foot showed severe dorsal forefoot soft tissue swelling and an old healed fracture of the proximal phalanx of the fifth digit. Subsequently, an MRI was performed and it shows prominent soft tissue swelling again at the dorsal aspect of the left foot involving the subcutaneous soft tissues characteristic of cellulitis. There was also inflammatory signal noted at the soft tissue surrounding the proximal second metatarsal bone. The findings were felt to be a equivocal regarding osteomyelitis. The patient was evaluated by podiatry and is due to undergo a bone biopsy today. Culture from the foot shows heavy growth of gram-negative costa and also heavy growth of Staph species. The patient is afebrile. His white blood cell count is normal. Sedimentation rate is 61. Blood cultures were taken on 08/12/2017 and have no growth. This consultation was requested for infection management. 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 ALLERGIES: NO KNOWN DRUG ALLERGIES. MEDICATIONS: 1. Vancomycin. 2. Piperacillin/tazobactam. 2. Doxepin. 3. Lopid. 4. Procardia. 5. Insulin. 6. Hytrin. 7. Josefa-Colace. SOCIAL HISTORY: No alcohol. No tobacco. No illicit drugs. The patient moved to [place] from [place], [place] 10 years ago. FAMILY HISTORY: History of CVA in his parents. REVIEW OF SYSTEMS: Significant for slight numbness of the feet. Otherwise, negative on a 10-point review. PHYSICAL EXAMINATION: GENERAL: This is a well-developed male who appears somewhat disheveled. He is in no acute distress. VITAL SIGNS: Temperature 96.8, BP 210/86, respirations 20, heart rate 78. HEENT: Head is atraumatic. Extraocular movements are grossly intact. Pupils reactive to light. No icterus. Oropharynx moist mucosa without lesions. NECK: Supple without adenopathy. LUNGS: Clear breath sounds. HEART: Regular rate and rhythm with a 2/6 systolic murmur at the left sternal border. ABDOMEN: Soft, moderately obese, nontender. No mass palpable. RECTAL: Not performed. EXTREMITIES: No clubbing. The left foot has erythema from the toes to about mid foot, particularly the dorsum of the foot and it is swollen and warm. The left great toe has a black tarry coloration at the nail bed region where the nail previously fell off. No visible drainage or foul odor. The right lower extremity has no clubbing, cyanosis or edema. LABORATORY DATA: WBC 7.5, platelets 107, hemoglobin 10.9, 66% neutrophils, 18% lymphocytes. Creatinine 2.28, BUN 34, estimated GFR 28, sodium 143. Liver function test normal. IMPRESSION: 1. Cellulitis of the left foot. 2. Diabetic foot infection. 3. Possible osteomyelitis MRI equivocal. Culture growing gram-negative costa and Staphylococcus species. RECOMMENDATIONS: 1. Continue vancomycin adjusted for the patient's renal function. 2. Continue piperacillin/tazobactam. 3. Monitor the cultures for antibiotic adjustments. 4. Monitor bone biopsy results to determine if osteomyelitis is present and therefore need for longer antibiotic course than would be necessary for cellulitis. Surgical intervention to be determined by podiatry. I will follow the patient's progress along with you and will make further adjustments to antibiotic treatment once further information becomes available on the cultures and based on the patient's clinical status and results of the biopsy. MD EUGENIO López/DL , 11:23 AM , 11:56 AM SELV[facility]
[2017-08-14] MEDS: hydrALAZINE HCL 25 MG TAB PO PRN (11:59)
[2017-08-14] MEDS ORDERED: LIDOCAINE HCL 1% PF 5 ML SYRINGE OTHER ONE (12:00)
[2017-08-14] MEDS ORDERED: PROPOFOL 200 MG/20 ML AMP IV ONE (12:00)
[2017-08-14] MEDS ORDERED: ONDANSETRON HCL 4 MG/2 ML VIAL IV ONE (12:00)
[2017-08-14] MEDS ORDERED: ROCURONIUM INJ 50 MG/5 ML SYRINGE IV PUSH ONE (12:00)
[2017-08-14] MEDS: VANCOMYCIN INJ 1,250 MG in SODIUM CHLOR 0.9% 250 ML INJ 250 ML IV SCH (12:26)
[2017-08-14] MEDS ORDERED: SUGAMMADEX SODIUM 200 MG/2 ML VIAL IV PUSH ONE (15:46)
[2017-08-14] MEDS: INSULIN ASPAR PROT 70/30 1,000 UNITS/10 ML VIAL SQ SCH (16:00)
[2017-08-14] MEDS ORDERED: DO NOT ADM ANY ANTICOAGULANT DRUGS PRN (16:09)
--- NOTE | 2017-08-14 16:35 | HHI.PR ---
Immediate Post Op Note Procedure Date: Aug 14, 2017 Pre Op Diagnosis: Right foot, arthritis, osteomyelitis, Charcot Post Op Diagnosis: Same Surgeon: Omar Dickinson [employer]le Inspector(s): Scrub Procedure: Incision bone cortex biopsy first second and third cuneiforms, right foot Findings: Under mild sedation the patient was brought to the operating room and placed on the operating table in the supine position. Following the induction of general anesthesia, right lower extremity was scrubbed prepped and draped in the usual aseptic fashion. Right foot was elevated exsanguinated and the previously placed midcalf tourniquet was inflated at 215 mmHg. Utilizing fluoroscopic guidance incisional bone cortex biopsy took place over the first second and third cuneiforms. Incision was made down subperiosteal there is no obvious pus or fluid noted. Hard bone cortex was noted upon introducing Jamshidi bone trocar into the respective cuneiform. Wounds were flushed and then closed. Specimen bone and bone culture for each cuneiform was sent total of 6 specimens 3 for bone 3 for microbial analysis. Bulky bandage placed upon relieving the tourniquet there was a prompt hyperemic response to all digits without a delayed capillary fill time. We will await culture and pathology before definitive decision regarding infection. This may be a combination of a Charcot arthritis with cellulitis however the biopsy will prove osteomyelitis or not. The patient may need cam walking boot immobilization and follow-up in clinic. Continue to follow percival-path, anticipate bandage change in the next 2- 3 days. Complications: None Specimen(s) removed: First second and third right cuneiforms for pathology, first second third cuneiform for microbial analysis Estimated blood loss: Less than 10 ML's Anesthesia: General Drains: None Tourniquet time (min at mmHg) Approximately 15 minutes at a setting of 215 mmHg Patient to: PACU Patient Condition: Good Implant/Devices: SEE IMPLANT LOG (if applicable) Date/Time of Procedure: SEE SURGICAL CARE RECORD Omar DickinsonM Aug 14, 2017 16:35
[2017-08-14 17:00] VITALS: BP 176/81; PULSE 72; RESP 20; TEMP 97.6; O2SAT 96
[2017-08-14 21:00] VITALS: BP 167/77; PULSE 71; RESP 18; TEMP 98; O2SAT 95
[2017-08-14] MEDS: TERAZOSIN HCL 1 MG CAP PO SCH (22:29)
[2017-08-15] VITALS (8 sets, daily range): BP systolic 184–224; BP diastolic 75–103; PULSE 72–91; RESP 18–20; TEMP 97.8–98.7; O2SAT 93–99
[2017-08-15] MEDS: hydrALAZINE HCL 25 MG TAB PO PRN ×2 (02:56→08:54)
[2017-08-15] MEDS: PIPERACIL-TAZO 3.375 GM PREMIX 50 ML IV SCH ×4 (05:43→23:07)
[2017-08-15] MEDS: GEMFIBROZIL 600 MG TAB PO SCH ×2 (05:43→16:36)
[2017-08-15] MEDS ORDERED: cloNIDine HCL 0.1 MG TAB PO ONE (08:45)
[2017-08-15] MEDS: DOXEPIN HCL 25 MG CAP PO SCH (08:54)
[2017-08-15] MEDS: SODIUM CHLORIDE 0.9% FLUSH 10 ML FLUSH IV FLUSH SCH ×2 (08:54→20:42)
[2017-08-15] MEDS: INSULIN ASPART SUPPLEMENTAL SCALE SQ SCH ×4 (08:54→21:00)
[2017-08-15] MEDS: NIFEdipine 60 MG SUSTAINED RELEASE TAB PO SCH (08:54)
[2017-08-15] MEDS: DOCUSATE SODIUM 50 MG/SENNA 8.6 MG TAB PO SCH ×2 (08:55→20:42)
--- NOTE | 2017-08-15 09:10 | HHI.PR ---
Subjective Remarks Follow up hypertension, foot infection, diabetes. The patient has no pain at this time. Denies cough, dyspnea, chest pain. Objective Vitals Vital Signs Date Time Temp Pulse Resp B/P (MAP) Pulse Ox O2 Delivery O2 Flow Rate FiO2 08/15/17 08:00 98.4 91 18 224/98 (140) 97 190/75 (113) 08/15/17 06:12 98.5 77 18 186/79 (114) 95 08/15/17 00:39 97.8 81 18 191/97 (128) 99 08/14/17 21:00 98.0 71 18 167/77 (107) 95 08/14/17 17:00 97.6 72 20 176/81 (112) 96 08/14/17 16:38 97.8 76 20 160/72 (101) 96 Nasal Cannula 2 08/14/17 16:30 76 20 169/74 (105) 96 Nasal Cannula 2 08/14/17 16:08 97.8 81 20 161/71 (101) 95 Nasal Cannula 2 I/O 08/14/17 08/14/17 08/14/17 08/15/17 08/15/17 08/15/17 07:00 15:00 23:00 07:00 15:00 23:00 Intake Total 400 ml 50 ml Output Total 405 ml 300 ml Balance -5 ml -250 ml IV Total 50 ml Other 400 ml Output Urine Total 400 ml 300 ml Estimated Blood Loss 5 ml # Voids 1 1 2 Result Diagram: 08/14/17 0658 08/14/17 0658 Imaging Last Impressions Foot MRI 08/13/17 0000 Signed Impressions: Service Date/Time: August 12:34 - CONCLUSION: 1. Prominent dorsal soft tissue swelling in the subcutaneous soft tissues without drainable fluid collection, characteristic of cellulitis. 2. There is also inflammatory signal change in the soft tissue surrounding the proximal 2nd metatarsal bone and there is some mild T2 prolongation within the marrow of the proximal metaphysis of the 2nd metatarsus, but no T1 prolongation. The findings are therefore equivocal regarding osteomyelitis of the proximal 2nd metatarsus. Estiven Beaver MD Foot X-Ray 08/12/17 1655 Signed Impressions: Service Date/Time: Saturday, August 12, 2017 17:11 - CONCLUSION: 1. Severe dorsal forefoot soft tissue swelling. 2. Old healed fracture of the proximal phalanx of the 5th digit. 3. Moderate irregularity of the osseous cortex dorsal aspect of the tarsal row, nonspecific for infection versus arthropathy. 4. Pes planus. Estiven Beaver MD Objective Remarks General: No acute distress. Heart: Regular rate and rhythm. No murmur. Lungs: Clear to auscultation bilaterally. No wheezes, rales, or rhonchi. Breathing is nonlabored. Abdomen: Soft, nontender, nondistended. Extremities: Trace left lower extremity edema. Left foot bandaged. SCDs. Psych: Alert and oriented. Procedures 08/14/17 Incision bone cortex biopsy first second and third cuneiforms, right foot Urinary Catheter: No Vascular Central Line Catheter: No A/P Assessment and Plan 1. Left foot cellulitis, possible osteomyelitis: Appreciate podiatry, infectious disease recommendations. Continue antibiotics. Status post bone biopsy. Pathology, microbiology pending. 2. Diabetes mellitus type 2: NovoLog 70/30 on hold due to low blood pressure. Monitor Accu-Cheks and cover with sliding scale insulin. Diabetic diet. Resume basal insulin once tolerating adequate diet. 3. Acute kidney injury superimposed on chronic kidney disease: Unknown baseline , likely stage III-IV. Monitor creatinine. Avoid nephrotoxins. 4. Accelerated hypertension with hypertensive urgency: Blood pressure 220 over 90s this morning. Lisinopril on hold secondary to renal function. Continue Procardia XL 60 mg daily. Clonidine 1 now. Schedule hydralazine. 5. Hyperlipidemia: Continue gemfibrozil. 6. DVT prophylaxis: KARLO Paul. Avoid chemical prophylaxis secondary to surgery. Abdi Rey MD Aug 15, 2017 09:10
[2017-08-15] MEDS ORDERED: PHARMACY ORDERED LAB ONE (11:45)
[2017-08-15] MEDS: VANCOMYCIN INJ 1,250 MG in SODIUM CHLOR 0.9% 250 ML INJ 250 ML IV SCH (11:51)
[2017-08-15 12:14] LABS: AUTOMATED NEUTROPHIL # 7.3 TH/MM3 (1.8-7.7); BASOPHIL % 0.5 % (0.0-2.0); EOSINOPHIL # 0.5 TH/MM3 (0-0.4); EOSINOPHIL % 4.8 % (0.0-4.0); HEMATOCRIT 32.5 % (39.0-51.0); HEMOGLOBIN 11.6 GM/DL (13.0-17.0); LYMPH % 16.1 % (9.0-44.0); LYMPHOCYTE # 1.7 TH/MM3 (1.0-4.8); MEAN CELL VOLUME 90.2 FL (80.0-100.0); MEAN CORPUSCULAR HEMOGLOBIN 32.1 PG (27.0-34.0); MEAN CORPUSCULAR HGB CONC 35.6 % (32.0-36.0); MEAN PLATELET VOLUME 10.3 FL (7.0-11.0); MONO % 8.6 % (0.0-8.0); MONOCYTE # 0.9 TH/MM3 (0-0.9); PLATELET COUNT 126 TH/MM3 (150-450); RED CELL DISTRIBUTION WIDTH 13.9 % (11.6-17.2); WHITE BLOOD COUNT 10.4 TH/MM3 (4.0-11.0)
[2017-08-15 12:31] LABS: BICARBONATE 27.7 MEQ/L (21.0-32.0); CALCIUM 9.2 MG/DL (8.5-10.1); CREATININE 2.2 MG/DL (0.60-1.30)
[2017-08-15] MEDS: hydrALAZINE HCL 10 MG TAB PO SCH ×2 (13:35→20:43)
--- NOTE | 2017-08-15 14:23 | HHI.IDPN ---
Subjective Subjective Remarks Patient seen and examined with Dr. Rick Barrett for Dr. Desouza This is a 71-year-old male with diabetes who developed redness and swelling of the left foot. Left great toenail fell off approximately 4 days ago. [facility] Patient as he was walking quite a bit after his car broke down approximately 2 weeks ago with an ill fitting shoe and soon after developed swelling and redness in the foot. He denies any fever chills nausea or vomiting. X-ray of the left foot revealed severe dorsal forefoot soft tissue swelling an old healed fracture of the proximal phalanx of the fifth digit. He'll probably soft tissue swelling again noted at the dorsal aspect of the left foot involving subcutaneous soft tissues Versus cellulitis. There was also some personal noted at the soft tissue surrounding the proximal second metatarsal bone. Findings were felt to be equivocal regarding osteomyelitis. I awaited by podiatry and underwent a bone biopsy. Culture from the foot revealed heavy growth of gram-negative costa and also heavy growth of staph species. His white blood cell count is normal. Some limitation rate is 61. Blood cultures taken 08/12/17 show no growth. 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 (Nickie Jean) Allergies: Coded Allergies: No Known Allergies (Verified Allergy, Mild, 08/12/17) Objective . Vital Signs Date Time Temp Pulse Resp B/P (MAP) Pulse Ox O2 Delivery O2 Flow Rate FiO2 08/15/17 12:00 98.2 72 18 184/96 (125) 96 Manual Cuff/Auscultation 08/15/17 09:20 96 21 08/15/17 08:00 98.4 91 18 224/98 (140) 97 190/75 (113) 08/15/17 06:12 98.5 77 18 186/79 (114) 95 08/15/17 00:39 97.8 81 18 191/97 (128) 99 08/14/17 21:00 98.0 71 18 167/77 (107) 95 08/14/17 17:00 97.6 72 20 176/81 (112) 96 08/14/17 16:38 97.8 76 20 160/72 (101) 96 Nasal Cannula 2 08/14/17 16:30 76 20 169/74 (105) 96 Nasal Cannula 2 08/14/17 16:08 97.8 81 20 161/71 (101) 95 Nasal Cannula 2 . Laboratory Tests Test 08/14/17 06:58 08/15/17 11:34 White Blood Count 7.5 TH/MM3 10.4 TH/MM3 Red Blood Count 3.43 MIL/MM3 3.60 MIL/MM3 Hemoglobin 10.9 GM/DL 11.6 GM/DL Hematocrit 31.0 % 32.5 % Mean Corpuscular Volume 90.3 FL 90.2 FL Mean Corpuscular Hemoglobin 31.9 PG 32.1 PG Mean Corpuscular Hemoglobin Concent 35.3 % 35.6 % Red Cell Distribution Width 14.1 % 13.9 % Platelet Count 107 TH/MM3 126 TH/MM3 Mean Platelet Volume 10.5 FL 10.3 FL Neutrophils (%) (Auto) 66.8 % 70.0 % Lymphocytes (%) (Auto) 18.7 % 16.1 % Monocytes (%) (Auto) 7.3 % 8.6 % Eosinophils (%) (Auto) 6.3 % 4.8 % Basophils (%) (Auto) 0.9 % 0.5 % Neutrophils # (Auto) 5.0 TH/MM3 7.3 TH/MM3 Lymphocytes # (Auto) 1.4 TH/MM3 1.7 TH/MM3 Monocytes # (Auto) 0.6 TH/MM3 0.9 TH/MM3 Eosinophils # (Auto) 0.5 TH/MM3 0.5 TH/MM3 Basophils # (Auto) 0.1 TH/MM3 0.0 TH/MM3 CBC Comment DIFF FINAL DIFF FINAL Differential Comment Laboratory Tests Test 08/14/17 06:58 08/15/17 11:34 Blood Urea Nitrogen 34 MG/DL 24 MG/DL Creatinine 2.28 MG/DL 2.20 MG/DL Random Glucose 94 MG/DL 144 MG/DL Calcium Level 8.6 MG/DL 9.2 MG/DL Sodium Level 143 MEQ/L 143 MEQ/L Potassium Level 3.8 MEQ/L 4.3 MEQ/L Chloride Level 111 MEQ/L 108 MEQ/L Carbon Dioxide Level 22.5 MEQ/L 27.7 MEQ/L Anion Gap 10 MEQ/L 7 MEQ/L Estimat Glomerular Filtration Rate 28 ML/MIN 30 ML/MIN Microbiology Date/Time Source Procedure Growth Status 08/12/17 17:10 Blood Peripheral Aerobic Blood Culture - Preliminary NO GROWTH IN 3 DAYS Resulted 08/12/17 17:10 Blood Peripheral Anaerobic Blood Culture - Preliminary NO GROWTH IN 3 DAYS Resulted 08/12/17 17:00 Blood Peripheral Aerobic Blood Culture - Preliminary NO GROWTH IN 3 DAYS Resulted 08/12/17 17:00 Blood Peripheral Anaerobic Blood Culture - Preliminary NO GROWTH IN 3 DAYS Resulted 08/12/17 16:37 Blood Peripheral Aerobic Blood Culture - Preliminary NO GROWTH IN 3 DAYS Resulted 08/12/17 16:37 Blood Peripheral Anaerobic Blood Culture - Preliminary NO GROWTH IN 3 DAYS Resulted 08/12/17 16:30 Blood Peripheral Aerobic Blood Culture - Preliminary NO GROWTH IN 3 DAYS Resulted 08/12/17 16:30 Blood Peripheral Anaerobic Blood Culture - Preliminary NO GROWTH IN 3 DAYS Resulted 08/14/17 18:35 Wound Foot Fungal Smear - Final NO FUNGAL ELEMENTS SEEN. Resulted 08/14/17 18:35 Wound Foot Fungal Culture Pending Resulted 08/14/17 18:35 Wound Foot Acid Fast Stain Pending Received 08/14/17 18:35 Wound Foot Mycobacterial Culture Pending Received 08/14/17 18:35 Wound Foot Gram Stain - Final Resulted 08/14/17 18:35 Wound Foot Wound Culture - Preliminary NO GROWTH IN 24 HOURS. Resulted 08/14/17 18:35 Wound Foot Fungal Smear - Final NO FUNGAL ELEMENTS SEEN. Resulted 08/14/17 18:35 Wound Foot Fungal Culture Pending Resulted 08/14/17 18:35 Wound Foot Acid Fast Stain Pending Received 08/14/17 18:35 Wound Foot Mycobacterial Culture Pending Received 08/14/17 18:35 Wound Foot Gram Stain - Final Resulted 08/14/17 18:35 Wound Foot Wound Culture - Preliminary NO GROWTH IN 24 HOURS. Resulted 08/14/17 18:35 Wound Foot Fungal Smear - Final NO FUNGAL ELEMENTS SEEN. Resulted 08/14/17 18:35 Wound Foot Fungal Culture Pending Resulted 08/14/17 18:35 Wound Foot Acid Fast Stain Pending Received 08/14/17 18:35 Wound Foot Mycobacterial Culture Pending Received 08/14/17 18:35 Wound Foot Gram Stain - Final Resulted 08/14/17 18:35 Wound Foot Wound Culture - Preliminary NO GROWTH IN 24 HOURS. Resulted 08/12/17 17:06 Wound Foot Gram Stain - Final Complete 08/12/17 17:06 Wound Culture - Final Enterobacter Cloacae Complete Imaging Last Impressions Foot MRI 08/13/17 0000 Signed Impressions: Service Date/Time: August 12:34 - CONCLUSION: 1. Prominent dorsal soft tissue swelling in the subcutaneous soft tissues without drainable fluid collection, characteristic of cellulitis. 2. There is also inflammatory signal change in the soft tissue surrounding the proximal 2nd metatarsal bone and there is some mild T2 prolongation within the marrow of the proximal metaphysis of the 2nd metatarsus, but no T1 prolongation. The findings are therefore equivocal regarding osteomyelitis of the proximal 2nd metatarsus. Estiven Beaver MD Foot X-Ray 08/12/17 1655 Signed Impressions: Service Date/Time: Saturday, August 12, 2017 17:11 - CONCLUSION: 1. Severe dorsal forefoot soft tissue swelling. 2. Old healed fracture of the proximal phalanx of the 5th digit. 3. Moderate irregularity of the osseous cortex dorsal aspect of the tarsal row, nonspecific for infection versus arthropathy. 4. Pes planus. Estiven Beaver MD Physical Exam GENERAL: Well-nourished, well-developed male patient in NAD. Awake and alert. Appears comfortable. SKIN: Warm and dry. No rash. HEAD: Normocephalic. Atraumatic. EYES: EOMI. No scleral icterus. No injection or drainage. ENT: No nasal bleeding or discharge. Mucous membranes pink and moist. NECK: Supple. Trachea midline. CARDIOVASCULAR: Regular rate and rhythm. S1, S2 noted. (+)Murmur RESPIRATORY: Nonlabored. Clear to auscultation. Breath sounds equal bilaterally. GASTROINTESTINAL: Abdomen soft, non-tender, nondistended. Normoactive bowel sounds x4. MUSCULOSKELETAL: Left foot in postop dressing, did not removed. Dressing C/D/ I. Able to wiggle toes. NEUROLOGICAL: Awake and alert. No obvious cranial nerve deficits. Motor grossly within normal limits. Normal speech. PSYCHIATRIC: Appropriate mood and affect; insight and judgment normal. (Nickie Jean) Assessment & Plan Remarks ASSESSMENT: Cellulitis left foot Diabetic foot infection Possible osteomyelitis MRI equivocal ?Charcot -08/12/17 Wound cx grew Enterobacter Cloacae, pansensitive -Podiatry following. 08/14 s/p incision bone cortex biopsy first, second and third cuneiforms, left foot performed by Dr. Melvin. Per his note, upon removal of tourniquet there was a prompt hyperemic response to all digits without delayed capillary fill time. -Intraop culture with no growth to date. Path pending. RECOMMENDATIONS: Discontinue vancomyci Continue Zosyn Follow up on final culture and path results Will discuss with Dr. Melvin Further recommendations to follow (Nickie Jean) Remarks The exam, history, and the medical decision-making described in the above note were completed with the assistance of the mid-level provider. I reviewed and agree with the findings presented. I attest that I had a [id number] encounter with the patient on the same day, and personally performed and documented my assessment and findings in the medical record. DC vanco IV Continue Zosyn IV for now. Dw : bone biopsy sent for path: suspects Charcots joint. Follow cultures Follow clinically. (Maru Cabrera MD) Nickie Jean Aug 15, 2017 14:23 Maru Cabrera MD Aug 15, 2017 18:05
--- NOTE | 2017-08-15 17:30 | EKG ---
Date Performed: 08/14/2017 Time Performed: 13:47:06 PTAGE: 71 years EKG: Sinus rhythm DIFFUSE NONSPECIFIC ST-T CHANGE AXIS BORDERLINE LEFTWARD ABNORMAL ECG NO PREVIOUS TRACING DOCTOR: Darian Cotto Interpretating Date/Time 08/15/2017 17:29:07
[2017-08-15] MEDS: TERAZOSIN HCL 1 MG CAP PO SCH (20:42)
[2017-08-16] MEDS ORDERED: hydrALAZINE HCL 10 MG TAB PO ONE ×2 (03:45→12:00)
[2017-08-16 04:00] VITALS: BP 200/99; PULSE 59; RESP 20; TEMP 97.3; O2SAT 97
[2017-08-16] MEDS: hydrALAZINE HCL 10 MG TAB PO SCH (06:01)
[2017-08-16] MEDS: GEMFIBROZIL 600 MG TAB PO SCH ×2 (06:01→16:58)
[2017-08-16] MEDS: PIPERACIL-TAZO 3.375 GM PREMIX 50 ML IV SCH ×4 (06:01→23:49)
[2017-08-16 06:09] VITALS: BP 180/90; PULSE 77
[2017-08-16 07:43] VITALS: BP_SYST 222; BP_SYST 230; BP_DIAS 100; BP_DIAS 94; PULSE 88; RESP 18; TEMP 98.7; O2SAT 95
[2017-08-16 08:00] LABS: BICARBONATE 24.2 MEQ/L (21.0-32.0); CALCIUM 8.9 MG/DL (8.5-10.1); CREATININE 2.17 MG/DL (0.60-1.30)
[2017-08-16 08:08] VITALS: O2SAT 96
[2017-08-16] MEDS ORDERED: cloNIDine HCL 0.1 MG TAB PO PRN (08:15)
[2017-08-16] MEDS: NIFEdipine 60 MG SUSTAINED RELEASE TAB PO SCH (08:25)
[2017-08-16] MEDS: SODIUM CHLORIDE 0.9% FLUSH 10 ML FLUSH IV FLUSH SCH ×2 (08:26→20:27)
[2017-08-16] MEDS: DOXEPIN HCL 25 MG CAP PO SCH (08:26)
[2017-08-16] MEDS: DOCUSATE SODIUM 50 MG/SENNA 8.6 MG TAB PO SCH ×2 (08:26→20:27)
[2017-08-16] MEDS: INSULIN ASPART SUPPLEMENTAL SCALE SQ SCH ×4 (08:27→20:37)
--- NOTE | 2017-08-16 08:51 | HHI.PR ---
Subjective Remarks Follow up acute kidney injury, diabetes, hypertension. The patient has no complaints at this time. Pain is well controlled. Denies headache, vision changes, numbness/tingling/weakness of his extremities. Denies chest pain or dyspnea. Objective Vitals Vital Signs Date Time Temp Pulse Resp B/P (MAP) Pulse Ox O2 Delivery O2 Flow Rate FiO2 08/16/17 07:43 98.7 88 18 222/94 (136) 95 230/100 (143) 08/16/17 06:09 77 180/90 (120) 08/16/17 04:00 97.3 59 20 200/99 (132) 97 08/15/17 20:15 72 210/103 (138) 08/15/17 20:00 98.7 73 20 212/95 (134) 93 08/15/17 16:41 98.7 73 18 192/88 (122) 96 08/15/17 12:00 98.2 72 18 184/96 (125) 96 Manual Cuff/Auscultation 08/15/17 09:20 96 21 I/O 08/15/17 08/15/17 08/15/17 08/16/17 08/16/17 08/16/17 07:00 15:00 23:00 07:00 15:00 23:00 Intake Total 50 ml Output Total 300 ml 2200 ml Balance -250 ml -2200 ml IV Total 50 ml Output Urine Total 300 ml 2200 ml # Voids 2 Result Diagram: 08/15/17 1134 08/16/17 0627 Imaging Last Impressions Foot MRI 08/13/17 0000 Signed Impressions: Service Date/Time: August 12:34 - CONCLUSION: 1. Prominent dorsal soft tissue swelling in the subcutaneous soft tissues without drainable fluid collection, characteristic of cellulitis. 2. There is also inflammatory signal change in the soft tissue surrounding the proximal 2nd metatarsal bone and there is some mild T2 prolongation within the marrow of the proximal metaphysis of the 2nd metatarsus, but no T1 prolongation. The findings are therefore equivocal regarding osteomyelitis of the proximal 2nd metatarsus. Estiven Beaver MD Foot X-Ray 08/12/17 1655 Signed Impressions: Service Date/Time: Saturday, August 12, 2017 17:11 - CONCLUSION: 1. Severe dorsal forefoot soft tissue swelling. 2. Old healed fracture of the proximal phalanx of the 5th digit. 3. Moderate irregularity of the osseous cortex dorsal aspect of the tarsal row, nonspecific for infection versus arthropathy. 4. Pes planus. Estiven Beaver MD Objective Remarks General: No acute distress. Heart: Regular rate and rhythm. No murmur. Lungs: Clear to auscultation bilaterally. No wheezes, rales, or rhonchi. Breathing is nonlabored. Abdomen: Soft, nontender, nondistended. Extremities: Trace left lower extremity edema. Left foot bandaged. SCDs. Psych: Alert and oriented. Procedures 08/14/17 Incision bone cortex biopsy first second and third cuneiforms, right foot Urinary Catheter: No Vascular Central Line Catheter: No A/P Assessment and Plan 1. Left foot cellulitis, possible osteomyelitis: Appreciate podiatry, infectious disease recommendations. Continue antibiotics. Status post bone biopsy. Pathology, microbiology pending. 2. Diabetes mellitus type 2: NovoLog 70/30 on hold due to low blood glucose. Monitor Accu-Cheks and cover with sliding scale insulin. Diabetic diet. Resume basal insulin once tolerating adequate diet. 3. Acute kidney injury superimposed on chronic kidney disease: Unknown baseline , likely stage III-IV. Monitor creatinine. Avoid nephrotoxins. Consult nephrology. 4. Accelerated hypertension with hypertensive urgency: Blood pressure remains elevated. Lisinopril on hold secondary to renal function. Continue Procardia XL 60 mg daily. Increase hydralazine. Clonidine as needed. Will ask nephrology for recommendations as well. 5. Hyperlipidemia: Continue gemfibrozil. 6. DVT prophylaxis: KARLO Paul. Discharge Planning Pending clinical improvement. Abdi Rey MD Aug 16, 2017 08:51
[2017-08-16] MEDS ORDERED: hydrALAZINE HCL 25 MG TAB PO SCH (14:00)
--- NOTE | 2017-08-16 15:30 | PD.POD ---
Subjective Remarks no pain doing well Past Med/Surg/Social History Social History Smoking Status: Former Smoker Objective Vital Signs Vital Signs Date Time Temp Pulse Resp B/P (MAP) Pulse Ox O2 Delivery O2 Flow Rate FiO2 08/16/17 08:08 96 21 08/16/17 07:43 98.7 88 18 222/94 (136) 95 230/100 (143) 08/16/17 06:09 77 180/90 (120) 08/16/17 04:00 97.3 59 20 200/99 (132) 97 08/15/17 20:15 72 210/103 (138) 08/15/17 20:00 98.7 73 20 212/95 (134) 93 08/15/17 16:41 98.7 73 18 192/88 (122) 96 Coded Allergies: No Known Allergies (Verified Allergy, Mild, 08/12/17) Medications and IVs Administered Medications Medications (Trade) Dose Ordered Sig/Juan Route PRN Reason Start Time Stop Time Status Last Admin Dose Admin Sodium Chloride (NS Flush) 2 ml BID IV FLUSH 08/12/17 21:00 08/16/17 08:26 Acetaminophen (Tylenol) 650 mg Q4H PRN PO TEMP > 100.4 08/12/17 20:30 08/14/17 17:33 Senna/Docusate Sodium (Josefa-Colace) 1 tab BID PO 08/12/17 21:00 08/15/17 20:42 Insulin Aspart (NovoLOG SUPPLEMENTAL SCALE) 1 ACHS SLIDING SCALE SQ 08/12/17 21:00 08/16/17 11:58 Piperacillin Sod/ Tazobactam Sod 50 ml @ 100 mls/hr Q6H IV 08/12/17 23:00 08/16/17 11:57 Doxepin HCl (SINEquan) 75 mg DAILY PO 08/13/17 09:00 08/16/17 08:26 Terazosin HCl (Hytrin) 1 mg HS PO 08/12/17 21:00 08/15/17 20:42 Insulin Aspart Prota 70%/Aspart 30% (NovoLOG MIX 70/ 30 INJ) 30 units DAILYAC SQ 08/14/17 08:00 Future Hold 08/14/17 10:09 Insulin Aspart Prota 70%/Aspart 30% (NovoLOG MIX 70/ 30 INJ) 32 units DAILY@1600 SQ 08/13/17 16:00 Future Hold 08/13/17 18:46 Gemfibrozil (Lopid) 600 mg BIDAC PO 08/13/17 16:00 08/16/17 06:01 Nifedipine (Procardia Xl) 60 mg DAILY PO 08/14/17 09:00 08/16/17 08:25 Hydralazine HCl (Apresoline) 25 mg Q8HR PO 08/16/17 14:00 08/16/17 14:05 Other Results Laboratory Tests Test 08/15/17 11:34 White Blood Count 10.4 TH/MM3 Red Blood Count 3.60 MIL/MM3 Hemoglobin 11.6 GM/DL Hematocrit 32.5 % Mean Corpuscular Volume 90.2 FL Mean Corpuscular Hemoglobin 32.1 PG Mean Corpuscular Hemoglobin Concent 35.6 % Red Cell Distribution Width 13.9 % Platelet Count 126 TH/MM3 Mean Platelet Volume 10.3 FL Neutrophils (%) (Auto) 70.0 % Lymphocytes (%) (Auto) 16.1 % Monocytes (%) (Auto) 8.6 % Eosinophils (%) (Auto) 4.8 % Basophils (%) (Auto) 0.5 % Neutrophils # (Auto) 7.3 TH/MM3 Lymphocytes # (Auto) 1.7 TH/MM3 Monocytes # (Auto) 0.9 TH/MM3 Eosinophils # (Auto) 0.5 TH/MM3 Basophils # (Auto) 0.0 TH/MM3 CBC Comment DIFF FINAL Differential Comment Laboratory Tests Test 08/15/17 11:34 08/16/17 06:27 Blood Urea Nitrogen 24 MG/DL 24 MG/DL Creatinine 2.20 MG/DL 2.17 MG/DL Random Glucose 144 MG/DL 127 MG/DL Calcium Level 9.2 MG/DL 8.9 MG/DL Sodium Level 143 MEQ/L 140 MEQ/L Potassium Level 4.3 MEQ/L 3.7 MEQ/L Chloride Level 108 MEQ/L 107 MEQ/L Carbon Dioxide Level 27.7 MEQ/L 24.2 MEQ/L Anion Gap 7 MEQ/L 9 MEQ/L Estimat Glomerular Filtration Rate 30 ML/MIN 30 ML/MIN Microbiology Date/Time Source Procedure Growth Status 08/14/17 18:35 Wound Foot Fungal Smear - Final NO FUNGAL ELEMENTS SEEN. Resulted 08/14/17 18:35 Wound Foot Fungal Culture Pending Resulted 08/14/17 18:35 Wound Foot Acid Fast Stain - Final NO ACID FAST BACILLI SEEN Resulted 08/14/17 18:35 Wound Foot Mycobacterial Culture Pending Resulted 08/14/17 18:35 Wound Foot Gram Stain - Final Resulted 18 18:35 Wound Foot Wound Culture - Preliminary NO GROWTH IN 48 HOURS. Resulted 08/14/17 18:35 Wound Foot Fungal Smear - Final NO FUNGAL ELEMENTS SEEN. Resulted 08/14/17 18:35 Wound Foot Fungal Culture Pending Resulted 08/14/17 18:35 Wound Foot Acid Fast Stain - Final NO ACID FAST BACILLI SEEN Resulted 08/14/17 18:35 Wound Foot Mycobacterial Culture Pending Resulted 08/14/17 18:35 Wound Foot Gram Stain - Final Resulted 08/14/17 18:35 Wound Foot Wound Culture - Preliminary NO GROWTH IN 48 HOURS. Resulted 08/14/17 18:35 Wound Foot Fungal Smear - Final NO FUNGAL ELEMENTS SEEN. Resulted 08/14/17 18:35 Wound Foot Fungal Culture Pending Resulted 08/14/17 18:35 Wound Foot Acid Fast Stain - Final NO ACID FAST BACILLI SEEN Resulted 08/14/17 18:35 Wound Foot Mycobacterial Culture Pending Resulted 18 18:35 Wound Foot Gram Stain - Final Resulted 08/14/17 18:35 Wound Foot Wound Culture - Preliminary NO GROWTH IN 48 HOURS. Resulted Bone biopsy are not final yet, I called to be certain it was sent and Micro confirmed, path not available on weekends Physical Exam Remarks Left LE- Sutures intact dorsum foot x3 small incisions. absent left hallux nail with healing noted no SOI, decreased edema and minimal redness, no crepitus or instability of digits forefoot hindfoot or ankle Assessment & Plan A/P Left foot infection OM of midfoot vs Charcot. Surgical wounds are healing well, Micro neg from bone cx, bone biopsy pending, CAM boot ordered, PT ordered, will clear for DC once path returns. Sign out to Dr Duarte. Omar Melvin DPM Aug 16, 2017 15:30
[2017-08-16 16:00] VITALS: BP 188/86; PULSE 68; RESP 18; TEMP 97.8; O2SAT 95
--- NOTE | 2017-08-16 19:05 | PD.CONS ---
HPI Service Nephrology Consult Requested By Dr. 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 Review of Systems Constitutional: COMPLAINS OF: Fatigue Musculoskeletal: COMPLAINS OF: Joint pain, Muscle aches, Stiffness Neurologic: COMPLAINS OF: Abnormal gait Past Family Social History Allergies: Coded Allergies: No Known Allergies (Verified Allergy, Mild, 08/12/17) Past Medical History Diabetes mellitus Chronic kidney disease Cirrhosis Hypertension Hyperlipidemia Past Surgical History Left fifth digit of the hand partially amputated Left eye cataract Reported Medications Reported Meds & Active Scripts Active Reported Terazosin (Terazosin HCl) 1 Mg Cap 1 Mg PO HS Red Yeast Rice (Red Yeast Rice Extract) 600 Mg Cap 1,200 Mg PO BID Multiple Vitamin 1 Tab 1 Tab PO DAILY Lisinopril 40 Mg Tab 40 Mg PO BID Glucosamine-Chondroitin 500-400 Mg Tab 1 Tab PO DAILY Gemfibrozil 600 Mg Tab 600 Mg PO BIDAC Take 30 minutes prior to breakfast and dinner. Fish Oil 1000 mg (Cisco-3 Fatty Acids) 300 Mg-1,000 Mg Cap 1,000 PO BID Doxepin (Doxepin HCl) 75 Mg Cap 75 Mg PO DAILY Coenzyme Q-10 (Ubidecarenone) 30 Mg Capsule PO DAILY Aspirin 81 Mg Chew 81 Mg CHEW DAILY Ascorbic Acid 500 Mg Tab 500 Mg PO DAILY Amlodipine (Amlodipine Besylate) 2.5 Mg Tab 2.5 Mg PO DAILY Novolog Mix 70-30 Inj (Insulin Aspart Prota 70%/Aspart 30%) 1,000 Unit/10 Ml Vial 32 Units SQ DAILY@1600 Novolog Mix 70-30 Inj (Insulin Aspart Prota 70%/Aspart 30%) 1,000 Unit/10 Ml Vial 30 Units SQ DAILYAC Active Ordered Medications Current Medications Medications (Trade) Dose Ordered Sig/Juan Route Start Time Stop Time Status Last Admin (NS Flush) 2 ml UNSCH PRN IV FLUSH 08/12/17 20:30 (NS Flush) 2 ml BID IV FLUSH 08/12/17 21:00 08/16/17 08:26 (Tylenol) 650 mg Q4H PRN PO 08/12/17 20:30 08/14/17 17:33 (Zofran Inj) 4 mg Q6H PRN IVP 08/12/17 20:30 (Narcan Inj) 0.4 mg UNSCH PRN IV PUSH 08/12/17 20:30 (Josefa-Colace) 1 tab BID PO 08/12/17 21:00 08/15/17 20:42 (Milk Of Magnesia Liq) 30 ml Q12H PRN PO 08/12/17 20:30 (Senokot) 17.2 mg Q12H PRN PO 08/12/17 20:30 (Dulcolax Supp) 10 mg DAILY PRN RECTAL 08/12/17 20:30 (Lactulose Liq) 30 ml DAILY PRN PO 08/12/17 20:30 (D50w (Vial) Inj) 50 ml UNSCH PRN IV PUSH 08/12/17 20:30 (Glucagon Inj) 1 mg UNSCH PRN OTHER 08/12/17 20:30 (NovoLOG SUPPLEMENTAL SCALE) 1 ACHS SLIDING SCALE SQ 08/12/17 21:00 08/16/17 17:43 Piperacillin Sod/ Tazobactam Sod 50 ml @ 100 mls/hr Q6H IV 08/12/17 23:00 08/16/17 17:07 (SINEquan) 75 mg DAILY PO 08/13/17 09:00 08/16/17 08:26 (Hytrin) 1 mg HS PO 08/12/17 21:00 08/15/17 20:42 (NovoLOG MIX 70/ 30 INJ) 30 units DAILYAC SQ 08/14/17 08:00 Future Hold 08/14/17 10:09 (NovoLOG MIX 70/ 30 INJ) 32 units DAILY@1600 SQ 08/13/17 16:00 Future Hold 08/13/17 18:46 (Lopid) 600 mg BIDAC PO 08/13/17 16:00 08/16/17 16:58 (Procardia Xl) 60 mg DAILY PO 08/14/17 09:00 08/16/17 08:25 (Apresoline) 25 mg Q8HR PO 08/16/17 14:00 08/16/17 14:05 (Catapres) 0.1 mg Q6H PRN PO 08/16/17 08:15 Family History Noncontributory Social History History of smoking in the past, history of alcohol use Physical Exam Vital Signs Vital Signs Date Time Temp Pulse Resp B/P (MAP) Pulse Ox O2 Delivery O2 Flow Rate FiO2 08/16/17 16:00 97.8 68 18 188/86 (120) 95 08/16/17 08:08 96 21 08/16/17 07:43 98.7 88 18 222/94 (136) 95 230/100 (143) 08/16/17 06:09 77 180/90 (120) 08/16/17 04:00 97.3 59 20 200/99 (132) 97 08/15/17 20:15 72 210/103 (138) 08/15/17 20:00 98.7 73 20 212/95 (134) 93 Physical Exam GENERAL: Well-nourished, well-developed patient. SKIN: Warm and dry. HEAD: Normocephalic. EYES: No scleral icterus. No injection or drainage. NECK: Supple, trachea midline. No JVD or lymphadenopathy. CARDIOVASCULAR: Regular rate and rhythm without murmurs, gallops, or rubs. RESPIRATORY: Breath sounds equal bilaterally. No accessory muscle use. GASTROINTESTINAL: Abdomen soft, non-tender, nondistended. EXTREMITIES: No cyanosis, left foot dressed positive edema. NEUROLOGICAL: Awake, alert, and oriented x 3. Non-focal. Laboratory Laboratory Tests Test 08/16/17 06:27 Blood Urea Nitrogen 24 Creatinine 2.17 Random Glucose 127 Calcium Level 8.9 Sodium Level 140 Potassium Level 3.7 Chloride Level 107 Carbon Dioxide Level 24.2 Anion Gap 9 Estimat Glomerular Filtration Rate 30 Date/Time Source Procedure Growth Status 08/12/17 17:10 Blood Peripheral Aerobic Blood Culture - Preliminary NO GROWTH IN 4 DAYS Resulted 08/12/17 17:10 Blood Peripheral Anaerobic Blood Culture - Preliminary NO GROWTH IN 4 DAYS Resulted 08/14/17 18:35 Wound Foot Fungal Smear - Final NO FUNGAL ELEMENTS SEEN. Resulted 08/14/17 18:35 Wound Foot Fungal Culture Pending Resulted Result Diagram: 08/15/17 1134 08/16/17 0627 Imaging Last Impressions Foot MRI 08/13/17 0000 Signed Impressions: Service Date/Time: August 12:34 - CONCLUSION: 1. Prominent dorsal soft tissue swelling in the subcutaneous soft tissues without drainable fluid collection, characteristic of cellulitis. 2. There is also inflammatory signal change in the soft tissue surrounding the proximal 2nd metatarsal bone and there is some mild T2 prolongation within the marrow of the proximal metaphysis of the 2nd metatarsus, but no T1 prolongation. The findings are therefore equivocal regarding osteomyelitis of the proximal 2nd metatarsus. Estiven Beaver MD Foot X-Ray 08/12/17 1655 Signed Impressions: Service Date/Time: Saturday, August 12, 2017 17:11 - CONCLUSION: 1. Severe dorsal forefoot soft tissue swelling. 2. Old healed fracture of the proximal phalanx of the 5th digit. 3. Moderate irregularity of the osseous cortex dorsal aspect of the tarsal row, nonspecific for infection versus arthropathy. 4. Pes planus. Estiven Beaver MD Assessment and Plan Problem List: (1) CKD (chronic kidney disease) stage 3, GFR 30-59 ml/min ICD Codes: N18.3 - Chronic kidney disease, stage 3 (moderate) Status: Chronic Plan: Patient known to have chronic kidney disease due to diabetes and follows at [place] [facility] stage III GFR at 30 He has uncontrolled hypertension I discussed with him that diabetes and blood pressure control is important Increase hydralazine to 50 mg 3 times a day Check urine analysis and urine for protein Follow BMP Baseline renal ultrasound If discharge he can follow with [place] [facility] (2) Diabetes ICD Codes: E11.9 - Type 2 diabetes mellitus without complications Plan: Continue to monitor blood glucose (3) Hypertension ICD Codes: I10 - Essential (primary) hypertension Plan: Uncontrolled need hydralazine increased (4) Cellulitis of foot, left ICD Codes: L03.116 - Cellulitis of left lower limb Status: Acute Plan: Podiatry following on [facility] Problem Qualifiers (1) Hypertension: Qualified Codes: I10 - Essential (primary) hypertension Monse Christopher MD Aug 16, 2017 19:05
[2017-08-16 20:00] VITALS: BP 122/68; PULSE 73; RESP 18; TEMP 97.9; O2SAT 97
[2017-08-16] MEDS: TERAZOSIN HCL 1 MG CAP PO SCH (20:27)
[2017-08-16] MEDS: hydrALAZINE HCL 25 MG TAB PO SCH (20:27)
--- NOTE | 2017-08-16 22:36 | RADRPT ---
EXAM DATE/TIME: 08/16/2017 22:05 [place] COMPARISON: No previous studies available for comparison. INDICATIONS : Increased BUN/Creatinine. MEDICAL HISTORY : Cirrhosis. Hypertension. Hypercholesterolemia. Diabetes. CKD. SURGICAL HISTORY : Left eye cataract. Left fifth digit of the hand partial amputation. ENCOUNTER: Initial ACUITY: 1 day PAIN SCORE: 0/10 LOCATION: Bilateral flank MEASUREMENTS: RIGHT KIDNEY: 13.2 x 4.7 x 5.4 cm LEFT KIDNEY: 12.6 x 4.2 x 5.1 cm FINDINGS: RIGHT KIDNEY: Renal cortex is normal in thickness and echotexture. 19 and 16 mm benign cysts. No hydronephrosis, s tone, or solid mass. LEFT KIDNEY: Renal cortex is normal in thickness and echotexture. 11 and 17 mm benign cysts. No hydronephrosis, st one, or solid mass. BLADDER: Within normal limits given the degree of distension. CONCLUSION: No obstructive uropathy or other acute abnormality. A couple benign cysts of both kidneys. Alan Power MD on August 16, 2017 at 22:33 Board Certified Radiologist. This report was verified electronically.
[2017-08-17] VITALS (7 sets, daily range): BP systolic 128–194; BP diastolic 70–90; PULSE 69–91; RESP 18–21; TEMP 97–98.7; O2SAT 96–98
[2017-08-17] MEDS: hydrALAZINE HCL 25 MG TAB PO SCH ×3 (05:34→21:47)
[2017-08-17] MEDS: PIPERACIL-TAZO 3.375 GM PREMIX 50 ML IV SCH ×4 (05:34→23:44)
[2017-08-17] MEDS: GEMFIBROZIL 600 MG TAB PO SCH ×2 (05:35→16:47)
[2017-08-17 07:50] LABS: BICARBONATE 22.6 MEQ/L (21.0-32.0); CALCIUM 9.2 MG/DL (8.5-10.1); CREATININE 2.26 MG/DL (0.60-1.30); PHOSPHORUS 2.9 MG/DL (2.5-4.9)
[2017-08-17] MEDS: SODIUM CHLORIDE 0.9% FLUSH 10 ML FLUSH IV FLUSH SCH ×2 (09:24→23:45)
[2017-08-17] MEDS: NIFEdipine 60 MG SUSTAINED RELEASE TAB PO SCH (09:24)
[2017-08-17] MEDS: INSULIN ASPART SUPPLEMENTAL SCALE SQ SCH ×4 (09:24→22:20)
[2017-08-17] MEDS: DOXEPIN HCL 25 MG CAP PO SCH (09:24)
[2017-08-17] MEDS: DOCUSATE SODIUM 50 MG/SENNA 8.6 MG TAB PO SCH ×2 (09:24→21:47)
--- NOTE | 2017-08-17 09:36 | HHI.PR ---
Subjective Remarks Follow-up hypertension, renal insufficiency, foot infection. Patient has no acute complaints. Still does not feel that he is able to go home. Blood pressure control improved overnight. Objective Vitals Vital Signs Date Time Temp Pulse Resp B/P (MAP) Pulse Ox O2 Delivery O2 Flow Rate FiO2 08/17/17 08:29 97.0 91 18 181/80 (113) 98 08/17/17 04:00 98.0 69 18 128/70 (89) 97 08/17/17 00:00 98.0 89 18 128/71 (90) 98 08/16/17 20:00 97.9 73 18 122/68 (86) 97 08/16/17 16:00 97.8 68 18 188/86 (120) 95 I/O 08/16/17 08/16/17 08/16/17 08/17/17 08/17/17 08/17/17 07:00 15:00 23:00 07:00 15:00 23:00 Intake Total 240 ml Output Total 2200 ml 800 ml Balance -2200 ml -800 ml 240 ml Intake Oral 240 ml Output Urine Total 2200 ml 800 ml Result Diagram: 08/15/17 1134 08/17/17 0644 Imaging Last Impressions Renal Ultrasound 08/16/17 0000 Signed Impressions: Service Date/Time: Wednesday, August 16, 2017 22:05 - CONCLUSION: No obstructive uropathy or other acute abnormality. A couple benign cysts of both kidneys. Alan Power MD Foot MRI 08/13/17 0000 Signed Impressions: Service Date/Time: August 12:34 - CONCLUSION: 1. Prominent dorsal soft tissue swelling in the subcutaneous soft tissues without drainable fluid collection, characteristic of cellulitis. 2. There is also inflammatory signal change in the soft tissue surrounding the proximal 2nd metatarsal bone and there is some mild T2 prolongation within the marrow of the proximal metaphysis of the 2nd metatarsus, but no T1 prolongation. The findings are therefore equivocal regarding osteomyelitis of the proximal 2nd metatarsus. Estiven Beaver MD Foot X-Ray 08/12/17 3215 Signed Impressions: Service Date/Time: Saturday, August 12, 2017 17:11 - CONCLUSION: 1. Severe dorsal forefoot soft tissue swelling. 2. Old healed fracture of the proximal phalanx of the 5th digit. 3. Moderate irregularity of the osseous cortex dorsal aspect of the tarsal row, nonspecific for infection versus arthropathy. 4. Pes planus. Estiven Beaver MD Objective Remarks General: No acute distress. Sitting up in a chair. Heart: Regular rate and rhythm. No murmur. Lungs: Clear to auscultation bilaterally. No wheezes, rales, or rhonchi. Breathing is nonlabored. Abdomen: Soft, nontender, nondistended. Extremities: Left foot in a boot. SCDs. Psych: Alert and oriented. Procedures 08/14/17 Incision bone cortex biopsy first second and third cuneiforms, right foot Urinary Catheter: No Vascular Central Line Catheter: No A/P Assessment and Plan 1. Left foot cellulitis, possible osteomyelitis: Appreciate podiatry, infectious disease recommendations. Continue antibiotics. Status post bone biopsy. Pathology, microbiology pending. 2. Diabetes mellitus type 2: NovoLog 70/30 on hold due to low blood glucose. Monitor Accu-Cheks and cover with sliding scale insulin. Diabetic diet. Resume basal insulin once tolerating adequate diet. 3. Acute kidney injury superimposed on chronic kidney disease: Unknown baseline , likely stage III-IV. Monitor creatinine. Avoid nephrotoxins. Appreciate nephrology recommendations. 4. Accelerated hypertension with hypertensive urgency: Blood pressure control improved overnight. Continue Procardia XL. Continue hydralazine, dose increased by nephrology. Lisinopril on hold secondary to renal failure. 5. Hyperlipidemia: Continue gemfibrozil. 6. DVT prophylaxis: KARLO Paul. Discharge Planning Pending podiatry clearance. Abdi Rey MD Aug 17, 2017 09:36
[2017-08-17 12:11] LABS: BILIRUBIN, URINE NEG (NEG); BLOOD, URINE NEG (NEG); GLUCOSE,URINE 70 mg/dL (NEG); KETONE, URINE NEG (NEG); MUCUS URINE FEW /lpf (OCC); NITRITE,URINE NEG (NEG); PH, URINE 6.5 (5.0-8.5); SQUAMOUS EPITHELIAL CELL URINE 1 /hpf (0-5); URINE COLOR LIGHT-YELLOW (YELLW/STRAW); URINE LEUKOCYTE ESTERASE NEG (NEG)
--- NOTE | 2017-08-17 17:52 | HHI.IDPN ---
Note Infectious Disease Note Patient is without complaints. Afebrile. Culture from bone biopsy specimen is negative. Culture prior to bone biopsy has Enterobacter cloacae. Presented with redness and swelling of his left foot and the nail from the left great toe fell off approximately 4 days ago prior to admission. He was sent to the emergency department by the [place] doctor who he was seeing for evaluation. The patient notes that he was walking quite a bit after his car broke down about 2 weeks ago and he was having foot drop against the shoe which was not a very good shoe for walking and subsequently he started developing the swelling of the left foot and subsequently redness. 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 ALLERGIES: NO KNOWN DRUG ALLERGIES. MEDICATIONS: Objective: Vital Signs Date Time Temp Pulse Resp B/P (MAP) Pulse Ox O2 Delivery O2 Flow Rate FiO2 08/17/17 16:27 97.7 74 18 171/81 (111) 96 08/17/17 14:16 96 21 08/17/17 12:13 98.3 76 18 188/80 (116) 97 08/17/17 08:29 97.0 91 18 181/80 (113) 98 08/17/17 04:00 98.0 69 18 128/70 (89) 97 08/17/17 00:00 98.0 89 18 128/71 (90) 98 08/16/17 20:00 97.9 73 18 122/68 (86) 97 Laboratory Tests Test 08/16/17 06:27 08/17/17 06:44 Blood Urea Nitrogen 24 MG/DL 28 MG/DL Creatinine 2.17 MG/DL 2.26 MG/DL Random Glucose 127 MG/DL 137 MG/DL Calcium Level 8.9 MG/DL 9.2 MG/DL Sodium Level 140 MEQ/L 139 MEQ/L Potassium Level 3.7 MEQ/L 3.7 MEQ/L Chloride Level 107 MEQ/L 106 MEQ/L Carbon Dioxide Level 24.2 MEQ/L 22.6 MEQ/L Anion Gap 9 MEQ/L 10 MEQ/L Estimat Glomerular Filtration Rate 30 ML/MIN 29 ML/MIN Phosphorus Level 2.9 MG/DL Microbiology Date/Time Source Procedure Growth Status 08/14/17 18:35 Wound Foot Fungal Smear - Final NO FUNGAL ELEMENTS SEEN. Resulted 08/14/17 18:35 Wound Foot Fungal Culture Pending Resulted 08/14/17 18:35 Wound Foot Acid Fast Stain - Final NO ACID FAST BACILLI SEEN Resulted 08/14/17 18:35 Wound Foot Mycobacterial Culture Pending Resulted 08/14/17 18:35 Wound Foot Gram Stain - Final Complete 08/14/17 18:35 Wound Foot Wound Culture - Final NO GROWTH IN 72 HRS.--AEROBICALLY OR ... Complete 08/14/17 18:35 Wound Foot Fungal Smear - Final NO FUNGAL ELEMENTS SEEN. Resulted 08/14/17 18:35 Wound Foot Fungal Culture Pending Resulted 08/14/17 18:35 Wound Foot Acid Fast Stain - Final NO ACID FAST BACILLI SEEN Resulted 08/14/17 18:35 Wound Foot Mycobacterial Culture Pending Resulted 08/14/17 18:35 Wound Foot Gram Stain - Final Complete 08/14/17 18:35 Wound Foot Wound Culture - Final NO GROWTH IN 72 HRS.--AEROBICALLY OR ... Complete 08/14/17 18:35 Wound Foot Fungal Smear - Final NO FUNGAL ELEMENTS SEEN. Resulted 08/14/17 18:35 Wound Foot Fungal Culture Pending Resulted 08/14/17 18:35 Wound Foot Acid Fast Stain - Final NO ACID FAST BACILLI SEEN Resulted 08/14/17 18:35 Wound Foot Mycobacterial Culture Pending Resulted 08/14/17 18:35 Wound Foot Gram Stain - Final Complete 08/14/17 18:35 Wound Foot Wound Culture - Final NO GROWTH IN 72 HRS.--AEROBICALLY OR ... Complete Imaging: Renal Ultrasound 08/16/17 0000 Signed Impressions: Service Date/Time: Wednesday, August 16, 2017 22:05 - CONCLUSION: No obstructive uropathy or other acute abnormality. A couple benign cysts of both kidneys. Alan Power MD Foot MRI 08/13/17 0000 Signed Impressions: Service Date/Time: August 12:34 - CONCLUSION: 1. Prominent dorsal soft tissue swelling in the subcutaneous soft tissues without drainable fluid collection, characteristic of cellulitis. 2. There is also inflammatory signal change in the soft tissue surrounding the proximal 2nd metatarsal bone and there is some mild T2 prolongation within the marrow of the proximal metaphysis of the 2nd metatarsus, but no T1 prolongation. The findings are therefore equivocal regarding osteomyelitis of the proximal 2nd metatarsus. Estiven Beaver MD Foot X-Ray 08/12/17 1646 Signed Impressions: Service Date/Time: Saturday, August 12, 2017 17:11 - CONCLUSION: 1. Severe dorsal forefoot soft tissue swelling. 2. Old healed fracture of the proximal phalanx of the 5th digit. 3. Moderate irregularity of the osseous cortex dorsal aspect of the tarsal row, nonspecific for infection versus arthropathy. 4. Pes planus. Estiven Beaver MD PHYSICAL EXAMINATION: GENERAL: No acute distress. HEENT: Head is atraumatic. Extraocular movements are grossly intact. Pupils reactive to light. No icterus. Oropharynx moist mucosa without lesions. NECK: Supple without adenopathy. LUNGS: Clear breath sounds. HEART: Regular rate and rhythm with a 2/6 systolic murmur at the left sternal border. ABDOMEN: Soft, moderately obese, nontender. No mass palpable. EXTREMITIES: The left foot has minimal erythema from the toes to about mid foot, the erythema has almost completely resolved and swelling is also decreased markedly. No clubbing, cyanosis or edema. IMPRESSION: 1. Cellulitis of the left foot/left great toe. Improved. Final culture grew Enterobacter. 2. Diabetic foot infection. 3. Possible osteomyelitis - left foot MRI equivocal. Bone biopsy pending. RECOMMENDATIONS: 1. Continue piperacillin/tazobactam. 2. Monitor bone biopsy pathology. If the pathology reveals osteomyelitis, We will give the patient IV ceftriaxone to treat osteomyelitis. If the biopsy specimen is negative for osteomyelitis he can be given p.o. cefuroxime For another 7 days. Ahsan Desouza MD Aug 17, 2017 17:52
[2017-08-17] MEDS: TERAZOSIN HCL 1 MG CAP PO SCH (23:44)
[2017-08-18] VITALS: BP 173/77; PULSE 70; RESP 20; TEMP 97.7; O2SAT 96
[2017-08-18 04:00] VITALS: BP 182/81; PULSE 68; RESP 20; TEMP 98.1; O2SAT 96
[2017-08-18] MEDS: GEMFIBROZIL 600 MG TAB PO SCH ×2 (05:57→14:52)
[2017-08-18] MEDS: hydrALAZINE HCL 25 MG TAB PO SCH ×3 (05:57→21:37)
[2017-08-18] MEDS: PIPERACIL-TAZO 3.375 GM PREMIX 50 ML IV SCH (05:58)
[2017-08-18 08:24] VITALS: BP 180/82; PULSE 67; RESP 18; TEMP 97.2; O2SAT 99
[2017-08-18] MEDS: INSULIN ASPART SUPPLEMENTAL SCALE SQ SCH ×4 (08:34→21:46)
[2017-08-18] MEDS: DOXEPIN HCL 25 MG CAP PO SCH (08:34)
[2017-08-18] MEDS: NIFEdipine 60 MG SUSTAINED RELEASE TAB PO SCH (08:34)
[2017-08-18] MEDS: SODIUM CHLORIDE 0.9% FLUSH 10 ML FLUSH IV FLUSH SCH ×2 (08:34→21:36)
[2017-08-18] MEDS: DOCUSATE SODIUM 50 MG/SENNA 8.6 MG TAB PO SCH ×2 (08:36→21:00)
--- NOTE | 2017-08-18 10:09 | HHI.PR ---
Subjective Remarks Follow-up hypertension, renal insufficiency, foot infection. The patient has no complaints at this time. He states that he is not very steady on his feet. [facility] because he is unable to drive his car due to the surgery on his foot. Objective Vitals Vital Signs Date Time Temp Pulse Resp B/P (MAP) Pulse Ox O2 Delivery O2 Flow Rate FiO2 08/18/17 08:24 97.2 67 18 180/82 (114) 99 08/18/17 04:00 98.1 68 20 182/81 (114) 96 08/18/17 00:00 97.7 70 20 173/77 (109) 96 08/17/17 20:00 98.7 76 21 165/72 (103) 96 08/17/17 16:27 97.7 74 18 171/81 (111) 96 08/17/17 14:16 96 21 08/17/17 12:13 98.3 76 18 188/80 (116) 97 I/O 08/17/17 08/17/17 08/17/17 08/18/17 08/18/17 08/18/17 07:00 15:00 23:00 07:00 15:00 23:00 Intake Total 240 ml 480 ml Output Total 800 ml Balance -800 ml 240 ml 480 ml Intake Oral 240 ml 480 ml Output Urine Total 800 ml # Voids 1 # Bowel Movements 0 Result Diagram: 08/15/17 1134 08/17/17 0644 Imaging Last Impressions Renal Ultrasound 08/16/17 0000 Signed Impressions: Service Date/Time: Wednesday, August 16, 2017 22:05 - CONCLUSION: No obstructive uropathy or other acute abnormality. A couple benign cysts of both kidneys. Alan Power MD Foot MRI 08/13/17 0000 Signed Impressions: Service Date/Time: August 12:34 - CONCLUSION: 1. Prominent dorsal soft tissue swelling in the subcutaneous soft tissues without drainable fluid collection, characteristic of cellulitis. 2. There is also inflammatory signal change in the soft tissue surrounding the proximal 2nd metatarsal bone and there is some mild T2 prolongation within the marrow of the proximal metaphysis of the 2nd metatarsus, but no T1 prolongation. The findings are therefore equivocal regarding osteomyelitis of the proximal 2nd metatarsus. Estiven Beaver MD Foot X-Ray 08/12/17 8422 Signed Impressions: Service Date/Time: Saturday, August 12, 2017 17:11 - CONCLUSION: 1. Severe dorsal forefoot soft tissue swelling. 2. Old healed fracture of the proximal phalanx of the 5th digit. 3. Moderate irregularity of the osseous cortex dorsal aspect of the tarsal row, nonspecific for infection versus arthropathy. 4. Pes planus. Estiven Beaver MD Objective Remarks General: No acute distress. Sitting up in a chair. Heart: Regular rate and rhythm. No murmur. Lungs: Clear to auscultation bilaterally. No wheezes, rales, or rhonchi. Breathing is nonlabored. Abdomen: Soft, nontender, nondistended. Extremities: Left foot in a boot. Psych: Alert and oriented. Procedures 08/14/17 Incision bone cortex biopsy first second and third cuneiforms, right foot Urinary Catheter: No Vascular Central Line Catheter: No A/P Assessment and Plan 1. Left foot cellulitis, possible osteomyelitis: Continue antibiotics. Status post bone biopsy. Pathology, microbiology pending. Infectious disease and podiatry awaiting pathology reports prior to making further recommendations. 2. Diabetes mellitus type 2: NovoLog 70/30 on hold due to low blood glucose. Monitor Accu-Cheks and cover with sliding scale insulin. Diabetic diet. Resume basal insulin once tolerating adequate diet. 3. Acute kidney injury superimposed on chronic kidney disease: Unknown baseline , likely stage III-IV. Monitor creatinine. Avoid nephrotoxins. Appreciate nephrology recommendations. Labs are pending today. 4. Accelerated hypertension with hypertensive urgency: Blood pressure elevated again. Continue Procardia XL. Continue hydralazine, dose increased by nephrology. Lisinopril on hold secondary to renal failure. 5. Hyperlipidemia: Continue gemfibrozil. 6. DVT prophylaxis: KARLO Paul. Discharge Planning Pending podiatry, infectious disease clearance. Abdi Rey MD Aug 18, 2017 10:09
[2017-08-18] MEDS: PIPERACIL-TAZO 2.25 GM PREMIX 50 ML IV SCH ×3 (10:39→23:12)
[2017-08-18 11:23] LABS: BICARBONATE 22.4 MEQ/L (21.0-32.0); CALCIUM 9.2 MG/DL (8.5-10.1); CREATININE 2.65 MG/DL (0.60-1.30)
[2017-08-18 12:07] VITALS: BP 166/74; PULSE 73; RESP 18; TEMP 97.6; O2SAT 95
--- NOTE | 2017-08-18 13:58 | HHI.NPPN ---
Subjective History of Present Illness complaining of left foot pain Review of Systems General Constitutional: Fatigue Musculoskeletal MS: Pain/Stiffness Objective Data Data Vital Signs Date Time Temp Pulse Resp B/P (MAP) Pulse Ox O2 Delivery O2 Flow Rate FiO2 08/18/17 12:07 97.6 73 18 166/74 (104) 95 08/18/17 08:24 97.2 67 18 180/82 (114) 99 08/18/17 04:00 98.1 68 20 182/81 (114) 96 08/18/17 00:00 97.7 70 20 173/77 (109) 96 08/17/17 20:00 98.7 76 21 165/72 (103) 96 08/17/17 16:27 97.7 74 18 171/81 (111) 96 08/17/17 14:16 96 21 -: 08/15/17 1134 08/18/17 1045 Physical Exam General Appearance: Well Developed Neck Neck Exam: Neck Supple Pulmonary Resp Exam: Clear Bilaterally Cardiology CV Exam: Regular Gastrointestinal/Abdomen GI Exam: Soft, Non-Tender, Bowel Sounds Present Extremeties Extremities Exam: No Edema (Left foot Brace) Assessment/Plan Problem List: (1) CKD (chronic kidney disease) stage 3, GFR 30-59 ml/min ICD Codes: N18.3 - Chronic kidney disease, stage 3 (moderate) Status: Chronic Plan: Patient known to have chronic kidney disease due to diabetes and follows at [place] [facility] stage III GFR at 30 He has uncontrolled hypertension I discussed with him that diabetes and blood pressure control is important Discussed he is not drinking fluids creatinine 2-2.6 Give normal saline 500 cc Check BMP in a.m. Increase hydralazine to 75 mg 3 times daily If discharge he can follow with [place] [facility] (2) Diabetes ICD Codes: E11.9 - Type 2 diabetes mellitus without complications Plan: Continue to monitor blood glucose (3) Hypertension ICD Codes: I10 - Essential (primary) hypertension Plan: Uncontrolled need hydralazine increased (4) Cellulitis of foot, left ICD Codes: L03.116 - Cellulitis of left lower limb Status: Acute [facility] Problem Qualifiers (1) Hypertension: Qualified Codes: I10 - Essential (primary) hypertension Monse Christopher MD Aug 18, 2017 13:58
[2017-08-18] MEDS ORDERED: SODIUM CHLORID 0.9% 500 ML INJ 500 ML IV ONE (14:00)
[2017-08-18 16:42] VITALS: BP 186/84; PULSE 74; RESP 18; TEMP 98; O2SAT 98
[2017-08-18 20:00] VITALS: BP 196/81; PULSE 81; RESP 20; TEMP 97.7; O2SAT 97
[2017-08-18] MEDS: TERAZOSIN HCL 1 MG CAP PO SCH (21:36)
[2017-08-18] MEDS: SODIUM CHLORIDE 0.9% FLUSH 10 ML FLUSH IV FLUSH PRN (23:13)
[2017-08-19 00:19] VITALS: BP 183/79; PULSE 72; RESP 20; TEMP 97.9; O2SAT 96
[2017-08-19 04:00] VITALS: BP 166/77; PULSE 71; RESP 18; TEMP 97.8; O2SAT 98
[2017-08-19] MEDS: PIPERACIL-TAZO 2.25 GM PREMIX 50 ML IV SCH ×2 (04:49→09:50)
[2017-08-19] MEDS: SODIUM CHLORIDE 0.9% FLUSH 10 ML FLUSH IV FLUSH PRN (04:50)
[2017-08-19] MEDS: hydrALAZINE HCL 25 MG TAB PO SCH ×2 (05:31→13:09)
[2017-08-19] MEDS: GEMFIBROZIL 600 MG TAB PO SCH (05:33)
[2017-08-19] MEDS: DOXEPIN HCL 25 MG CAP PO SCH (07:23)
[2017-08-19] MEDS: NIFEdipine 60 MG SUSTAINED RELEASE TAB PO SCH (07:23)
[2017-08-19] MEDS: DOCUSATE SODIUM 50 MG/SENNA 8.6 MG TAB PO SCH (07:24)
[2017-08-19] MEDS: SODIUM CHLORIDE 0.9% FLUSH 10 ML FLUSH IV FLUSH SCH (07:24)
[2017-08-19 08:58] LABS: BICARBONATE 23.8 MEQ/L (21.0-32.0); CALCIUM 9.1 MG/DL (8.5-10.1); CREATININE 2.51 MG/DL (0.60-1.30)
[2017-08-19] MEDS: INSULIN ASPART SUPPLEMENTAL SCALE SQ SCH ×2 (09:00→13:09)
[2017-08-19 09:32] VITALS: BP 181/81; PULSE 68; RESP 20; TEMP 97.4; O2SAT 97
--- NOTE | 2017-08-19 10:30 | HHI.IDPN ---
Note Infectious Disease Note Patient feels okay. No new complaints. Afebrile. Culture from bone biopsy specimen is negative. Culture prior to bone biopsy has Enterobacter cloacae. Bone biopsy pathology negative for osteomyelitis. Presented with redness and swelling of his left foot and the nail from the left great toe fell off approximately 4 days ago prior to admission. He was sent to the emergency department by the [place] doctor who he was seeing for evaluation. 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 ALLERGIES: NO KNOWN DRUG ALLERGIES. Objective: Vital Signs Date Time Temp Pulse Resp B/P (MAP) Pulse Ox O2 Delivery O2 Flow Rate FiO2 08/19/17 09:32 97.4 68 20 181/81 (114) 97 08/19/17 04:00 97.8 71 18 166/77 (106) 98 08/19/17 00:19 97.9 72 20 183/79 (113) 96 08/18/17 20:00 97.7 81 20 196/81 (119) 97 08/18/17 16:42 98.0 74 18 186/84 (118) 98 08/18/17 12:07 97.6 73 18 166/74 (104) 95 Laboratory Tests Test 08/18/17 10:45 08/19/17 07:20 Blood Urea Nitrogen 35 MG/DL 35 MG/DL Creatinine 2.65 MG/DL 2.51 MG/DL Random Glucose 215 MG/DL 136 MG/DL Calcium Level 9.2 MG/DL 9.1 MG/DL Sodium Level 140 MEQ/L 141 MEQ/L Potassium Level 3.3 MEQ/L 4.0 MEQ/L Chloride Level 108 MEQ/L 108 MEQ/L Carbon Dioxide Level 22.4 MEQ/L 23.8 MEQ/L Anion Gap 10 MEQ/L 9 MEQ/L Estimat Glomerular Filtration Rate 24 ML/MIN 25 ML/MIN Imaging: Renal Ultrasound 08/16/17 0000 Signed Impressions: Service Date/Time: Wednesday, August 16, 2017 22:05 - CONCLUSION: No obstructive uropathy or other acute abnormality. A couple benign cysts of both kidneys. Alan Power MD Foot MRI 08/13/17 0000 Signed Impressions: Service Date/Time: August 12:34 - CONCLUSION: 1. Prominent dorsal soft tissue swelling in the subcutaneous soft tissues without drainable fluid collection, characteristic of cellulitis. 2. There is also inflammatory signal change in the soft tissue surrounding the proximal 2nd metatarsal bone and there is some mild T2 prolongation within the marrow of the proximal metaphysis of the 2nd metatarsus, but no T1 prolongation. The findings are therefore equivocal regarding osteomyelitis of the proximal 2nd metatarsus. Estiven Beaver MD Foot X-Ray 08/12/17 [id number] Signed Impressions: Service Date/Time: Saturday, August 12, 2017 17:11 - CONCLUSION: 1. Severe dorsal forefoot soft tissue swelling. 2. Old healed fracture of the proximal phalanx of the 5th digit. 3. Moderate irregularity of the osseous cortex dorsal aspect of the tarsal row, nonspecific for infection versus arthropathy. 4. Pes planus. Estiven Beaver MD PHYSICAL EXAMINATION: GENERAL: No acute distress. HEENT: Head is atraumatic. Extraocular movements are grossly intact. Pupils reactive to light. No icterus. Oropharynx moist mucosa without lesions. NECK: Supple without adenopathy. LUNGS: Clear breath sounds. HEART: Regular rate and rhythm with 2/6 systolic murmur at the left sternal border. ABDOMEN: Soft, moderately obese, nontender. No mass palpable. EXTREMITIES: The left foot erythema is resolved. No clubbing, cyanosis or edema. IMPRESSION: 1. Cellulitis of the left foot/left great toe. Improved. Culture grew Enterobacter. 2. Diabetic foot infection. 3. Bone biopsy negative for osteomyelitis of the left foot. RECOMMENDATIONS: Stop piperacillin/tazobactam. Okay to discharge patient on p.o. cefuroxime 250mg twice daily for 7 more days. Discussed with . Ahsan Desouza MD Aug 19, 2017 10:30
[2017-08-19] MEDS ORDERED: CEFU1TAB20 PO (10:46)
[2017-08-19] MEDS ORDERED: CLON0.1T PO (10:46)
[2017-08-19] MEDS ORDERED: NIFE60TA8 PO (10:46)
[2017-08-19] MEDS ORDERED: HYDR-3799 PO (10:46)
--- NOTE | 2017-08-19 10:50 | HHI.PR ---
Subjective Remarks Patient says he is feeling well. Would like to go. Denies pain. Objective Vital Signs Date Time Temp Pulse Resp B/P (MAP) Pulse Ox O2 Delivery O2 Flow Rate FiO2 08/19/17 09:32 97.4 68 20 181/81 (114) 97 08/19/17 04:00 97.8 71 18 166/77 (106) 98 08/19/17 00:19 97.9 72 20 183/79 (113) 96 08/18/17 20:00 97.7 81 20 196/81 (119) 97 08/18/17 16:42 98.0 74 18 186/84 (118) 98 08/18/17 12:07 97.6 73 18 166/74 (104) 95 I/O 08/18/17 08/18/17 08/18/17 08/19/17 08/19/17 08/19/17 07:00 15:00 23:00 07:00 15:00 23:00 Intake Total 660 ml Balance 660 ml IV Total 660 ml # Voids 1 2 2 # Bowel Movements 0 1 0 Result Diagram: 08/15/17 1134 08/19/17 0720 Objective Remarks GENERAL: Patient lying in bed. Appears comfortable. Alert and oriented 4. SKIN: Warm and dry. HEAD: Normocephalic. EYES: No scleral icterus. No injection or drainage. NECK: Supple, trachea midline. No JVD. CARDIOVASCULAR: Regular rate and rhythm without murmurs, gallops, or rubs. RESPIRATORY: Breath sounds equal bilaterally. No accessory muscle use. GASTROINTESTINAL: Abdomen soft, non-tender, nondistended. MUSCULOSKELETAL: No cyanosis, or edema. Left foot dressed. BACK: Nontender without obvious deformity. No CVA tenderness. A/P Assessment and Plan // Left foot cellulitis, possible osteomyelitis: Continue antibiotics. Status post bone biopsy. Pathology, microbiology pending. Infectious disease and podiatry awaiting pathology reports prior to making further recommendations. = Discussed with infectious disease. Biopsy negative for osteomyelitis. Discharge home on by mouth cefuroxime 7 day course. Awaiting clearance from podiatry. // Diabetes mellitus type 2: NovoLog 70/30 on hold due to low blood glucose. Monitor Accu-Cheks and cover with sliding scale insulin. Diabetic diet. Resume basal insulin once tolerating adequate diet. // Acute kidney injury superimposed on chronic kidney disease: Unknown baseline , likely stage III-IV. Monitor creatinine. Avoid nephrotoxins. Appreciate nephrology recommendations. Labs are pending today. = Kidney function continues stable. Hold lisinopril at discharge. //Accelerated hypertension with hypertensive urgency: Blood pressure elevated again. Continue Procardia XL. Continue hydralazine, dose increased by nephrology. Lisinopril on hold secondary to renal failure. = Discharge home on adjusted regimen. // Hyperlipidemia: Continue gemfibrozil. // DVT prophylaxis: KARLO Paul. Discharge Planning Discharge today pending podiatry clearance. Junaid Dillon MD Aug 19, 2017 10:50
[2017-08-19 12:20] VITALS: BP 170/72; PULSE 71; RESP 20; TEMP 98.4; O2SAT 96
--- NOTE | 2017-08-19 13:46 | HHI.DS ---
Discharge Summary Admission Date Aug 13, 2017 at 11:40 Discharge Date: Aug 19, 2017 Admitting Diagnosis left foot cellulitis (1) Cellulitis of foot, left ICD Code: L03.116 - Cellulitis of left lower limb Status: Acute Procedures 08/14/17 Incision bone cortex biopsy first second and third cuneiforms, right foot Brief History - From Admission 71-year-old male with a past medical history significant for diabetes mellitus, chronic kidney disease, cirrhosis, hypertension and hyperlipidemia presents to the emergency department for evaluation of his left foot pain/swelling. The patient states that approximately 2 weeks ago he had to walk 2 miles in all shoes and his foot began to swell. He denies any open wounds on the foot. He states that his foot became progressively more red and swollen and last night he lost the nail off his big toe. The patient reports he is able to ambulate on the foot and that it just has a dull ache all the time. His foot is red and swollen on the medial aspect and dorsum of the foot. He was seen by his primary care physician at the [facility] today who sent him to the emergency department for further evaluation. The patient denies any chest pain or shortness of breath. No abdominal pain. No nausea/vomiting/diarrhea. No lateralizing signs /symptoms. CBC/BMP: 08/15/17 1134 08/19/17 0720 Significant Findings Laboratory Tests Test 08/17/17 06:44 08/17/17 09:30 08/18/17 10:45 08/19/17 07:20 Blood Urea Nitrogen 28 MG/DL (7-18) 35 MG/DL (7-18) 35 MG/DL (7-18) Creatinine 2.26 MG/DL (0.60-1.30) 2.65 MG/DL (0.60-1.30) 2.51 MG/DL (0.60-1.30) Random Glucose 137 MG/DL (74-106) 215 MG/DL (74-106) 136 MG/DL (74-106) Estimat Glomerular Filtration Rate 29 ML/MIN (>89) 24 ML/MIN (>89) 25 ML/MIN (>89) Urine Protein 300 mg/dL (NEG-TRACE) Urine Glucose (UA) 70 mg/dL (NEG) Urine Mucus FEW /lpf (OCC) Urine Random Total Protein 581 MG/DL (0-11.8) Urine Protein/Creatinine Ratio 5.93 (0.00-0.14) Potassium Level 3.3 MEQ/L (3.5-5.1) Chloride Level 108 MEQ/L (98-107) 108 MEQ/L (98-107) Imaging Last Impressions Renal Ultrasound 08/16/17 0000 Signed Impressions: Service Date/Time: Wednesday, August 16, 2017 22:05 - CONCLUSION: No obstructive uropathy or other acute abnormality. A couple benign cysts of both kidneys. Alan Power MD Foot MRI 08/13/17 0000 Signed Impressions: Service Date/Time: August 12:34 - CONCLUSION: 1. Prominent dorsal soft tissue swelling in the subcutaneous soft tissues without drainable fluid collection, characteristic of cellulitis. 2. There is also inflammatory signal change in the soft tissue surrounding the proximal 2nd metatarsal bone and there is some mild T2 prolongation within the marrow of the proximal metaphysis of the 2nd metatarsus, but no T1 prolongation. The findings are therefore equivocal regarding osteomyelitis of the proximal 2nd metatarsus. Estiven Beaver MD Foot X-Ray 08/12/17 [id number] Signed Impressions: Service Date/Time: Saturday, August 12, 2017 17:11 - CONCLUSION: 1. Severe dorsal forefoot soft tissue swelling. 2. Old healed fracture of the proximal phalanx of the 5th digit. 3. Moderate irregularity of the osseous cortex dorsal aspect of the tarsal row, nonspecific for infection versus arthropathy. 4. Pes planus. Estiven Beaver MD PE at Discharge General: No acute distress. Sitting up in a chair. Heart: Regular rate and rhythm. No murmur. Lungs: Clear to auscultation bilaterally. No wheezes, rales, or rhonchi. Breathing is nonlabored. Abdomen: Soft, nontender, nondistended. Extremities: Left foot in a boot. Psych: Alert and oriented. Hospital Course MRI performed with results as above. Podiatry was consulted, and patient underwent incision bone cortex biopsy of first, second, third cuneiforms right foot. Biopsy negative for osteoarthritis. Infectious disease followed during admission, and approved patient to go home on by mouth antibiotics to complete treatment course. Patient is to follow-up with primary care and podiatry as outpatient. Creatinine was noted to be around 2.5 during admission. Patient's HERNANDEZ inhibitor was discontinued, and nifedipine added due to hypertension. For problem-based summary from most recent progress note, please see below. // Left foot cellulitis, possible osteomyelitis: Continue antibiotics. Status post bone biopsy. Pathology, microbiology pending. Infectious disease and podiatry awaiting pathology reports prior to making further recommendations. = Discussed with infectious disease. Biopsy negative for osteomyelitis. Discharge home on by mouth cefuroxime 7 day course. Awaiting clearance from podiatry. // Diabetes mellitus type 2: NovoLog 70/30 on hold due to low blood glucose. Monitor Accu-Cheks and cover with sliding scale insulin. Diabetic diet. Resume basal insulin once tolerating adequate diet. // Acute kidney injury superimposed on chronic kidney disease: Unknown baseline , likely stage III-IV. Monitor creatinine. Avoid nephrotoxins. Appreciate nephrology recommendations. Labs are pending today. = Kidney function continues stable. Hold lisinopril at discharge. //Accelerated hypertension with hypertensive urgency: Blood pressure elevated again. Continue Procardia XL. Continue hydralazine, dose increased by nephrology. Lisinopril on hold secondary to renal failure. = Discharge home on adjusted regimen. // Hyperlipidemia: Continue gemfibrozil. // DVT prophylaxis: SCDs, KARLO barber. Discharge Planning Discharge today pending podiatry clearance. Pt Condition on Discharge: Good Discharge Disposition: Discharge Home Discharge Time: > 30 minutes Discharge Instructions DIET: Follow Instructions for: Diabetic Diet Activities you can perform: Weight Bearing as Nick Follow up Referrals: Appointment for Follow Up PCP Follow-up - 1 Week [facility] Follow-up Podiatry - 2-3 Days with Omar Melvin DPM New Medications: Cefuroxime (Cefuroxime) 500 Mg Tab 500 MG PO BID for Infection, #14 TAB 0 Refills Clonidine (Clonidine) 0.1 Mg Tab 0.1 MG PO BID for Blood Pressure Management, #60 TAB 0 Refills Hydralazine HCl (Hydralazine HCl) 25 Mg Tablet 75 MG PO Q8HR for Blood Pressure Management for 30 Days, TAB Nifedipine ER 24 HR (Nifedipine ER 24 HR) 60 Mg Tab 60 MG PO DAILY for Blood Pressure Management for 30 Days, #30 TAB Continued Medications: Ascorbic Acid (Ascorbic Acid) 500 Mg Tab 500 MG PO DAILY, TAB Aspirin (Aspirin) 81 Mg Chew 81 MG CHEW DAILY, TAB 0 Refills Doxepin (Doxepin) 75 Mg Cap 75 MG PO DAILY, #30 CAP 0 Refills Gemfibrozil (Gemfibrozil) 600 Mg Tab 600 MG PO BIDAC, #60 TAB 0 Refills Take 30 minutes prior to breakfast and dinner. Glucosamine-Chondroitin (Glucosamine-Chondroitin) 500-400 Mg Tab 1 TAB PO DAILY for Herbal Supplements, TAB 0 Refills Insulin Aspart Protam-Asp 70-30 Inj (Novolog Mix 70-30 Inj) 1,000 Unit/10 Ml Vial 30 UNITS SQ DAILYAC for Blood Sugar Management, #10 ML 0 Refills Insulin Aspart Protam-Asp 70-30 Inj (Novolog Mix 70-30 Inj) 1,000 Unit/10 Ml Vial 32 UNITS SQ DAILY@1600 for Blood Sugar Management, #10 ML 0 Refills Multiple Vitamin (Multiple Vitamin) 1 Tab 1 TAB PO DAILY for Nutritional Supplement, TAB 0 Refills [place]-3 Fatty Acids (Fish Oil 1000 mg) 300 Mg-1,000 Mg Cap 1000 PO BID Red Yeast Rice Extract (Red Yeast Rice) 600 Mg Cap 1200 MG PO BID Terazosin (Terazosin) 1 Mg Cap 1 MG PO HS, #30 CAP 0 Refills Ubidecarenone (Coenzyme Q-10) 30 Mg Capsule PO DAILY Discontinued Medications: Amlodipine (Amlodipine) 2.5 Mg Tab 2.5 MG PO DAILY for Blood Pressure Management, #30 TAB 0 Refills Lisinopril (Lisinopril) 40 Mg Tab 40 MG PO BID for Blood Pressure Management, #30 TAB 0 Refills Junaid Dillon MD Aug 19, 2017 13:46
[2017-08-19] MEDS ORDERED: WALKER WHEELS/F1 MIS (15:29)
[2017-08-19 15:48] VITALS: BP 184/79; PULSE 83; RESP 20; TEMP 97.5; O2SAT 97
--- NOTE | 2017-08-27 14:27 | PD.OP ---
Operative Report Date of Surgery: Aug 14, 2017 Preoperative Diagnosis: Right foot, arthritis, osteomyelitis, Charcot Postoperative Diagnosis: Right foot, arthritis, osteomyelitis, Charcot Procedure: Incision bone cortex biopsy first second and third cuneiforms, right foot Anesthesia: General Surgeon: Omar Dickinson Sales Representative [employer]): scrub Operation and Findings: Findings: Under mild sedation the patient was brought to the operating room and placed on the operating table in the supine position. Following the induction of general anesthesia, right lower extremity was scrubbed prepped and draped in the usual aseptic fashion. Right foot was elevated exsanguinated and the previously placed midcalf tourniquet was inflated at 215 mmHg. Utilizing fluoroscopic guidance incisional bone cortex biopsy took place over the first second and third cuneiforms. Incision was made down subperiosteal there is no obvious pus or fluid noted. Hard bone cortex was noted upon introducing Jamshidi bone trocar into the respective cuneiform. Wounds were flushed and then closed. Specimen bone and bone culture for each cuneiform was sent total of 6 specimens 3 for bone 3 for microbial analysis. Bulky bandage placed upon relieving the tourniquet there was a prompt hyperemic response to all digits without a delayed capillary fill time. We will await culture and pathology before definitive decision regarding infection. This may be a combination of a Charcot arthritis with cellulitis however the biopsy will prove osteomyelitis or not. The patient may need cam walking boot immobilization and follow-up in clinic. Continue to follow [facility], anticipate bandage change in the next 2- 3 days. Complications: None Specimen(s) removed: First second and third right cuneiforms for pathology, first second third cuneiform for microbial analysis Estimated blood loss: Less than 10 ML's Anesthesia: General Drains: None Tourniquet time (min at mmHg) Approximately 15 minutes at a setting of 215 mmHg Patient to: PACU Patient Condition: Good Implant/Devices: SEE IMPLANT LOG (if applicable) Date/Time of Procedure: SEE SURGICAL CARE RECORD Omar Dickinson DPM Aug 27, 2017 14:27
== END 2017-08-19 15:59 | disposition home health service (06) | DRG 629 ==
LOC: NEPE 15:43 → NEDA 19:18 → NEPHCDU 21:02 → OBSVTOIN 08-13 11:40 → N04B 08-14 13:12 → N05A 08-14 16:50
PROVIDERS: ADMIT Internal Medicine; ATTEND Internal Medicine
PROC: 0QBM0ZX Excision of Left Tarsal, Open Approach, Diagnostic (ICD-10-PCS; principal; 2017-08-14 15:02)
DX: E11.628 Type 2 diabetes mellitus with other skin complications (principal); L03.116 Cellulitis of left lower limb; N17.9 Acute kidney failure, unspecified; E11.22 Type 2 diabetes mellitus with diabetic chronic kidney disease; I12.9 Hypertensive chronic kidney disease with stage 1 through stage 4 chronic kidney disease, or unspecified chronic kidney disease; I16.0 Hypertensive urgency; E78.5 Hyperlipidemia, unspecified; B96.89 Other specified bacterial agents as the cause of diseases classified elsewhere; L03.032 Cellulitis of left toe; N18.3 Chronic kidney disease, stage 3 (moderate); Z87.891 Personal history of nicotine dependence; Z79.4 Long term (current) use of insulin
CPT/HCPCS: 73630; 73718; 76000; 76775; 80048; 80053; 80202; 81001; 82570; 82948; 83605; 84100; 84156; 85025; 85652; 86140; 86403; 87015; 87040; 87070; 87077; 87102; 87116; 87186; 87205; 87206; 88307; 88311; 93005; 96365; 96366; 96367; 96372; G0378; G8987-GP; G8988-GP; J1815; J2405; J2543; J3010; J3370; J7030; J7040; J7050; L2114